=== PATIENT | female | born 1945 | race African-American/Black ===

== ENCOUNTER 2016-12-16 10:46 | Inpatient (IN) | payer OTHER, MEDICAID ==
[~2016-12-16] VITALS: Ht 162.6 cm; Wt 73.0 kg
[2016-12-16] MEDS ORDERED: SODIUM CHLORIDE 0.9% 1,000 ML IV ONE (11:09)
[2016-12-16] MEDS ORDERED: LORAZEPAM 2MG/ML CPJ ONE (11:12)
[2016-12-16] MEDS ORDERED: LEVETIRACETAM 500MG PREMIX 100 ML IV ONE (11:15)
[2016-12-16] MEDS ORDERED: LORAZEPAM 2MG/ML CPJ IV ONE (11:15)
[2016-12-16 11:37] LABS: BASOPHILS % 1.3 % (0.0-2.0); EOSINOPHILS % 0.9 % (0.0-5.0); HEMATOCRIT. 43.6 % (36.0-48.0); LYMPHOCYTES % 40.8 % (20.0-50.0); MEAN CORPUSCULAR HEMOGLOBIN 27.1 pg (28.0-32.0); MEAN CORPUSCULAR VOLUME 84.3 fL (81.0-99.0); MEAN PLATELET VOLUME 8.5 fl (7.4-10.4); MONOCYTES % 5.5 % (2.0-8.0); NEUTROPHILS % 51.5 % (40.0-76.0); PLATELET 254 x1000/uL (130-400); RED BLOOD CELL COUNT 5.18 mill/uL (4.2-5.4); RED CELL DISTRIBUTION WIDTH 13.6 % (11.6-14.6)
[2016-12-16 11:38] LABS: PROTHROMBIN TIME 10.6 sec (9.4-11.6)
[2016-12-16 12:16] LABS: CHLORIDE 106 mEq/L (98-107)
[2016-12-16 12:24] LABS: CARBON DIOXIDE 23 mEq/L (21-32)
[2016-12-16] MEDS ORDERED: SODIUM CHLORIDE 0.9% 1,000 ML IV SCH (14:35)
[2016-12-16] MEDS ORDERED: DOCUSATE SODIUM 100MG CAPSULE PO PRN (15:00)
[2016-12-16] MEDS ORDERED: IPRATROPIUM/ALBUTEROL 0.5-3(2.5)MG/3ML NEB INH PRN (15:00)
[2016-12-16] MEDS ORDERED: NITROGLYCERIN 0.4MG TABLET SL SL PRN (15:00)
[2016-12-16] MEDS ORDERED: NA PHOS,M-B/NA PHOS,DI-BA ENEMA 118ML PR PRN (15:00)
[2016-12-16] MEDS ORDERED: ONDANSETRON HCL 4MG/2ML VIAL IV PRN (15:00)
[2016-12-16] MEDS ORDERED: DIPHENHYDRAMINE 50MG/ML VIAL IV PRN (15:00)
[2016-12-16] MEDS ORDERED: TRAMADOL 50MG TABLET PO PRN (15:00)
[2016-12-16] MEDS ORDERED: MAGNESIUM/ALUMINUM HYDROXIDE/SIMETHICONE 30ML UDC PO PRN (15:00)
[2016-12-16] MEDS ORDERED: ZOLPIDEM TARTRATE 5MG TABLET PO PRN (15:00)
[2016-12-16] MEDS ORDERED: GUAIFENESIN 200MG/10ML SUGAR FREE UDC PO PRN (15:00)
[2016-12-16] MEDS ORDERED: CLONIDINE 0.1MG TABLET PO PRN (15:00)
[2016-12-16] MEDS ORDERED: PHENYTOIN SODIUM 500 MG in SODIUM CHLORIDE 0.9% 50 ML IV SCH (17:00)
[2016-12-16 17:30] VITALS: BP 175/80
[2016-12-16 17:41] VITALS: BP 175/80
[2016-12-16] MEDS ORDERED: DOCUSATE SODIUM SUGAR FREE 100MG/10ML UDC GT PRN (17:43)
[2016-12-16] MEDS ORDERED: MAGNESIUM/ALUMINUM HYDROXIDE/SIMETHICONE 30ML UDC GT PRN (17:45)
[2016-12-16] MEDS ORDERED: ZOLPIDEM TARTRATE 5MG TABLET GT PRN (17:45)
[2016-12-16] MEDS ORDERED: CALC-889 GT (17:55)
[2016-12-16] MEDS ORDERED: ACET-2178 GT (17:55)
[2016-12-16] MEDS ORDERED: KEPP500 GT (17:55)
[2016-12-16] MEDS ORDERED: DOCU-138 GT (17:55)
[2016-12-16] MEDS ORDERED: DIGO250T4 PO (17:55)
[2016-12-16] MEDS ORDERED: METO50TA5 GT (17:55)
[2016-12-16] MEDS ORDERED: MULT-1146 GT (17:55)
[2016-12-16] MEDS ORDERED: CHOL100044 GT (17:55)
[2016-12-16] MEDS ORDERED: PHEN100C4 GT (17:55)
[2016-12-16] MEDS ORDERED: DILT90TA2 GT (17:55)
[2016-12-16] MEDS: DEXT 5%/0.45% NACL 1000ML 1,000 ML IV SCH (18:15)
[2016-12-16] MEDS ORDERED: DEXTROSE 50% WATER 50ML SYRINGE IV PRN (18:30)
[2016-12-16] MEDS: CLONIDINE 0.1MG TABLET GT PRN (18:38)
[2016-12-16] MEDS: LORAZEPAM 2MG/ML CPJ IV PRN (18:39)
[2016-12-16] MEDS ORDERED: GUAIFENESIN 200MG/10ML SUGAR FREE UDC GT PRN (19:00)
[2016-12-16 20:00] VITALS: BP 137/70
[2016-12-16] MEDS ORDERED: CLONIDINE 0.1MG TABLET GT PRN (21:00)
[2016-12-16] MEDS ORDERED: LISINOPRIL 20MG TABLET PO SCH (21:00)
[2016-12-16] MEDS ORDERED: TRAMADOL 50MG TABLET GT PRN (21:00)
[2016-12-16] MEDS ORDERED: LEVETIRACETAM 500MG TABLET PO SCH (21:00)
[2016-12-16] MEDS: INSULIN LISPRO 100 UNITS/ML SUBCUT SCH (21:00)
[2016-12-16] MEDS ORDERED: PHENYTOIN SODIUM EXTENDED 100MG CAPSULE PO SCH (21:00)
[2016-12-16] MEDS: FAMOTIDINE 20MG/2ML VIAL IV SCH (21:07)
[2016-12-16] MEDS: LEVETIRACETAM 500MG TABLET GT SCH (21:08)
[2016-12-16] MEDS: LISINOPRIL 20MG TABLET GT SCH (21:09)
[2016-12-16] MEDS: BLOOD SUGAR DIAGNOSTIC STRIP TEST SCH (21:10)
[2016-12-16 23:40] LABS: CREATINE KINASE MB FRACTION 2.3 ng/mL (0.5-3.6); TROPONIN I 0.07 ng/mL (0.00-0.04)
[2016-12-17] VITALS: BP 150/70
[2016-12-17] MEDS: LORAZEPAM 2MG/ML CPJ IV PRN (02:06)
[2016-12-17 04:00] VITALS: BP 165/71
[2016-12-17] MEDS: DEXT 5%/0.45% NACL 1000ML 1,000 ML IV SCH (04:15)
[2016-12-17] MEDS: CLONIDINE 0.1MG TABLET GT PRN (05:42)
[2016-12-17 06:42] LABS: TROPONIN I 0.05 ng/mL (0.00-0.04)
[2016-12-17] MEDS: BLOOD SUGAR DIAGNOSTIC STRIP TEST SCH ×4 (06:42→21:16)
[2016-12-17 06:43] LABS: CREATINE KINASE MB FRACTION 2.3 ng/mL (0.5-3.6)
[2016-12-17] MEDS: INSULIN LISPRO 100 UNITS/ML SUBCUT SCH ×4 (07:46→21:00)
[2016-12-17 08:00] VITALS: BP 133/75
[2016-12-17] MEDS ORDERED: AMLODIPINE 10MG TABLET PO SCH (09:00)
[2016-12-17] MEDS ORDERED: ASPIRIN 325MG EC TABLET PO SCH (09:00)
[2016-12-17] MEDS: LEVETIRACETAM 500MG TABLET GT SCH ×2 (09:25→21:15)
[2016-12-17] MEDS: FAMOTIDINE 20MG/2ML VIAL IV SCH ×2 (09:32→21:15)
[2016-12-17] MEDS: AMLODIPINE 10MG TABLET GT SCH (09:32)
[2016-12-17] MEDS: ASPIRIN 325MG TABLET GT SCH (09:33)
[2016-12-17] MEDS: ENOXAPARIN 40MG/0.4ML SYR SUBCUT SCH (09:33)
[2016-12-17] MEDS: LISINOPRIL 20MG TABLET GT SCH ×2 (09:33→21:15)
[2016-12-17 12:00] VITALS: BP 150/58
[2016-12-17 16:00] VITALS: BP 158/71
[2016-12-17 20:00] VITALS: BP 160/76
[2016-12-17] MEDS ORDERED: PHENYTOIN 100 MG/4 ML UDC GT SCH (21:00)
[2016-12-18] VITALS: BP 121/64
[2016-12-18] MEDS: LORAZEPAM 2MG/ML CPJ IV PRN (03:42)
[2016-12-18 04:00] VITALS: BP 146/81
[2016-12-18] MEDS: BLOOD SUGAR DIAGNOSTIC STRIP TEST SCH ×2 (07:42→12:40)
[2016-12-18] MEDS: INSULIN LISPRO 100 UNITS/ML SUBCUT SCH ×2 (07:42→13:10)
[2016-12-18 08:00] VITALS: BP 169/77
[2016-12-18] MEDS: ENOXAPARIN 40MG/0.4ML SYR SUBCUT SCH (09:49)
[2016-12-18] MEDS: FAMOTIDINE 20MG/2ML VIAL IV SCH (09:50)
[2016-12-18] MEDS: ASPIRIN 325MG TABLET GT SCH (09:50)
[2016-12-18] MEDS: LEVETIRACETAM 500MG TABLET GT SCH (09:50)
[2016-12-18] MEDS: LISINOPRIL 20MG TABLET GT SCH (09:51)
[2016-12-18] MEDS: AMLODIPINE 10MG TABLET GT SCH (09:51)
[2016-12-18 12:00] VITALS: BP 154/76
[2016-12-18] MEDS: CLONIDINE 0.1MG TABLET GT PRN (12:25)
[2016-12-18 13:10] VITALS: BP 145/65
== END 2016-12-18 14:56 | DRG 101 ==
LOC: ER 10:48 → SUPCPDRO 14:45 → ENRESERV 15:31 → 7WST 15:31
PROVIDERS: ADMIT Internal Medicine; ATTEND Internal Medicine
DX: G40.901 Epilepsy, unspecified, not intractable, with status epilepticus (principal); E44.0 Moderate protein-calorie malnutrition; E11.9 Type 2 diabetes mellitus without complications; I10 Essential (primary) hypertension; Z79.4 Long term (current) use of insulin; Z86.73 Personal history of transient ischemic attack (TIA), and cerebral infarction without residual deficits; Z79.899 Other long term (current) drug therapy; Z68.27 Body mass index [BMI] 27.0-27.9, adult
CPT/HCPCS: 36415; 70450; 71010; 80053; 80185; 82550; 82553; 82962; 84484; 85025; 85610; 93005; 93306; 93970; 96374; 99291; C1893; J1165; J1650; J1815; J1953; J2060; J3490; J7030

== ENCOUNTER 2017-06-04 19:28 | Inpatient (IN) | payer OTHER, MEDICAID ==
[~2017-06-04] VITALS: Ht 172.7 cm; Wt 87.7 kg
[~2017-06-04 19:28] MED LIST: ACET-2178 GT; CALC-889 GT; CHOL100044 GT; DIGO250T4 GT; DILT240T12 GT; DOCU-138 GT; HYDR-4134 GT; INSLIS SUBCUT; LEVE750T10 GT; METO-539 GT
[2017-06-04] MEDS ORDERED: SODIUM CHLORIDE 0.9% 1,000 ML IV ONE (22:40)
[2017-06-04 23:17] LABS: BASOPHILS % 0.7 % (0.0-2.0); EOSINOPHILS % 0.8 % (0.0-5.0); HEMATOCRIT. 36.2 % (36.0-48.0); HEMOGLOBIN. 11.8 g/dL (12.0-16.0); MEAN CORPUSCULAR HEMOGLOBIN 27.6 pg (28.0-32.0); MEAN CORPUSCULAR VOLUME 84.7 fL (81.0-99.0); MONOCYTES % 8.7 % (2.0-8.0); NEUTROPHILS % 72.8 % (40.0-76.0); PLATELET 136 x1000/uL (130-400); RED BLOOD CELL COUNT 4.27 mill/uL (4.2-5.4); RED CELL DISTRIBUTION WIDTH 13.9 % (11.6-14.6)
[2017-06-04 23:19] LABS: CHLORIDE 112 mEq/L (98-107)
[2017-06-04 23:28] LABS: CREATINE KINASE 334 IU/L (26-192)
[2017-06-04 23:38] LABS: CLARITY URINE CLOUDY (CLEAR); COLOR URINE YELLOW (YELLOW); KETONES URINE NEGATIVE (NEGATIVE); LEUKOCYTE ESTERASE URINE NEGATIVE (NEGATIVE); NITRITE URINE NEGATIVE (NEGATIVE); OCCULT BLOOD URINE TRACE (NEGATIVE); PROTEIN URINE 3+ (NEGATIVE); SPECIFIC GRAVITY URINE 1.021 (1.005-1.030); UROBILINOGEN URINE 0.2 E.U./dL (0.2-1.0)
[2017-06-04 23:54] LABS: AMMONIA 31 uMol/L (<32)
[2017-06-05] MEDS ORDERED: ONDANSETRON HCL 4MG/2ML VIAL IV PRN (00:15)
[2017-06-05] MEDS ORDERED: ACETAMINOPHEN 325MG TABLET PO PRN (00:15)
[2017-06-05] MEDS ORDERED: DIPHENHYDRAMINE 50MG/ML VIAL IV PRN (00:15)
[2017-06-05] MEDS ORDERED: DEXT 5%/0.45% NACL 1000ML 1,000 ML IV SCH (05:00)
[2017-06-05 09:30] VITALS: BP 136/80
[2017-06-05] MEDS: DEXT 5%/0.45% NACL 1000ML 1,000 ML IV SCH (10:45)
[2017-06-05 12:00] VITALS: BP 109/41
[2017-06-05 16:00] VITALS: BP 108/40
[2017-06-05] MEDS ORDERED: DEXTROSE 50% WATER 50ML SYRINGE IV PRN (16:15)
[2017-06-05] MEDS: BLOOD SUGAR DIAGNOSTIC STRIP TEST SCH ×2 (17:40→21:30)
[2017-06-05] MEDS: INSULIN LISPRO 100 UNITS/ML SUBCUT SCH ×2 (18:10→21:34)
[2017-06-05 20:18] VITALS: BP 127/69
[2017-06-06] MEDS: DEXT 5%/0.45% NACL 1000ML 1,000 ML IV SCH ×4 (00:05→22:05)
[2017-06-06 00:07] VITALS: BP 142/77
[2017-06-06 04:00] VITALS: BP 138/76
[2017-06-06] MEDS: BLOOD SUGAR DIAGNOSTIC STRIP TEST SCH ×4 (06:01→21:36)
[2017-06-06 08:00] VITALS: BP 136/69
[2017-06-06] MEDS: INSULIN LISPRO 100 UNITS/ML SUBCUT SCH ×4 (08:29→21:00)
[2017-06-06 08:54] LABS: BASOPHILS % 0.5 % (0.0-2.0); EOSINOPHILS % 0.5 % (0.0-5.0); HEMATOCRIT. 34.6 % (36.0-48.0); HEMOGLOBIN. 11.1 g/dL (12.0-16.0); LYMPHOCYTES % 11.7 % (20.0-50.0); MEAN CORPUSCULAR HEMOGLOBIN 27.1 pg (28.0-32.0); MEAN CORPUSCULAR VOLUME 84.5 fL (81.0-99.0); MEAN PLATELET VOLUME 11.5 fl (7.4-10.4); MONOCYTES % 7.3 % (2.0-8.0); PLATELET 161 x1000/uL (130-400); RED BLOOD CELL COUNT 4.09 mill/uL (4.2-5.4); RED CELL DISTRIBUTION WIDTH 13.6 % (11.6-14.6)
[2017-06-06 09:20] LABS: PHOSPHORUS 5.1 mg/dL (2.5-4.9)
[2017-06-06 12:00] VITALS: BP 134/76
[2017-06-06] MEDS ORDERED: POTASSIUM CHLORIDE 20MEQ/PACKET GT SCH (15:00)
[2017-06-06 16:00] VITALS: BP 139/81
[2017-06-06 20:00] VITALS: BP 131/78
[2017-06-07] VITALS: BP 144/80
[2017-06-07 04:00] VITALS: BP 142/63
[2017-06-07] MEDS: BLOOD SUGAR DIAGNOSTIC STRIP TEST SCH ×4 (06:24→21:00)
[2017-06-07 08:00] VITALS: BP 154/80
[2017-06-07 08:17] LABS: BASOPHILS % 0.2 % (0.0-2.0); EOSINOPHILS % 0.7 % (0.0-5.0); HEMATOCRIT. 31.1 % (36.0-48.0); HEMOGLOBIN. 10.2 g/dL (12.0-16.0); MEAN CORPUSCULAR HEMOGLOBIN 27.4 pg (28.0-32.0); MEAN CORPUSCULAR VOLUME 83.5 fL (81.0-99.0); MEAN PLATELET VOLUME 11.2 fl (7.4-10.4); MONOCYTES % 9.6 % (2.0-8.0); NEUTROPHILS % 75.5 % (40.0-76.0); PLATELET 182 x1000/uL (130-400); RED BLOOD CELL COUNT 3.73 mill/uL (4.2-5.4); RED CELL DISTRIBUTION WIDTH 13.3 % (11.6-14.6)
[2017-06-07 08:41] LABS: PHOSPHORUS 4.7 mg/dL (2.5-4.9)
[2017-06-07] MEDS: INSULIN LISPRO 100 UNITS/ML SUBCUT SCH ×4 (10:39→21:00)
[2017-06-07] MEDS ORDERED: POTASSIUM CHLORIDE INJ 40 MEQ in DEXT 5% WATER 500 ML IV SCH (11:00)
[2017-06-07 12:00] VITALS: BP 138/77
[2017-06-07] MEDS: DEXT 5%/0.45% NACL 1000ML 1,000 ML IV SCH (13:51)
[2017-06-07 16:00] VITALS: BP 150/78
[2017-06-07] MEDS ORDERED: POTASSIUM CHLORIDE 20MEQ/PACKET GT NR (17:00)
[2017-06-07 20:00] VITALS: BP 127/62
[2017-06-07] MEDS ORDERED: LOPERAMIDE 2 MG/10 ML UDC PO PRN (22:15)
[2017-06-08] VITALS (7 sets, daily range): BP systolic 130–168; BP diastolic 66–86
[2017-06-08] MEDS: BLOOD SUGAR DIAGNOSTIC STRIP TEST SCH ×4 (06:40→21:00)
[2017-06-08] MEDS: INSULIN LISPRO 100 UNITS/ML SUBCUT SCH ×4 (08:10→22:28)
[2017-06-08 08:28] LABS: BASOPHILS % 0.4 % (0.0-2.0); EOSINOPHILS % 1.2 % (0.0-5.0); HEMATOCRIT. 27.4 % (36.0-48.0); HEMOGLOBIN. 9.2 g/dL (12.0-16.0); LYMPHOCYTES % 18.8 % (20.0-50.0); MEAN CORPUSCULAR HEMOGLOBIN 27.7 pg (28.0-32.0); MEAN CORPUSCULAR VOLUME 82.3 fL (81.0-99.0); MEAN PLATELET VOLUME 10.6 fl (7.4-10.4); MONOCYTES % 8.9 % (2.0-8.0); NEUTROPHILS % 70.7 % (40.0-76.0); PLATELET 178 x1000/uL (130-400); RED BLOOD CELL COUNT 3.33 mill/uL (4.2-5.4); RED CELL DISTRIBUTION WIDTH 13.3 % (11.6-14.6)
[2017-06-08 08:59] LABS: PHOSPHORUS 4.7 mg/dL (2.5-4.9)
[2017-06-08] MEDS ORDERED: IOHEXOL-300 50 ML BOTTLE IV ONE (11:25)
[2017-06-09] VITALS (7 sets, daily range): BP systolic 99–176; BP diastolic 48–82
[2017-06-09] MEDS: BLOOD SUGAR DIAGNOSTIC STRIP TEST SCH ×4 (07:40→21:00)
[2017-06-09] MEDS: INSULIN LISPRO 100 UNITS/ML SUBCUT SCH ×4 (08:10→21:00)
[2017-06-09 11:43] LABS: BASOPHILS % 0.2 % (0.0-2.0); EOSINOPHILS % 0.5 % (0.0-5.0); HEMATOCRIT. 32.5 % (36.0-48.0); HEMOGLOBIN. 10.9 g/dL (12.0-16.0); LYMPHOCYTES % 12.3 % (20.0-50.0); MEAN CORPUSCULAR HEMOGLOBIN 27.6 pg (28.0-32.0); MEAN CORPUSCULAR VOLUME 82.3 fL (81.0-99.0); MEAN PLATELET VOLUME 10.8 fl (7.4-10.4); MONOCYTES % 0.3 % (2.0-8.0); NEUTROPHILS % 86.7 % (40.0-76.0); PLATELET 196 x1000/uL (130-400); RED BLOOD CELL COUNT 3.95 mill/uL (4.2-5.4); RED CELL DISTRIBUTION WIDTH 13.4 % (11.6-14.6)
[2017-06-09 13:12] LABS: PHOSPHORUS 4.8 mg/dL (2.5-4.9)
[2017-06-10 04:00] VITALS: BP 148/74
[2017-06-10] MEDS: BLOOD SUGAR DIAGNOSTIC STRIP TEST SCH ×4 (05:29→20:57)
[2017-06-10 08:00] VITALS: BP 135/64
[2017-06-10] MEDS: INSULIN LISPRO 100 UNITS/ML SUBCUT SCH ×4 (08:10→21:00)
[2017-06-10 11:47] VITALS: BP 114/66
[2017-06-10 16:00] VITALS: BP 122/68
[2017-06-10 20:00] VITALS: BP 142/71
[2017-06-11] VITALS: BP 148/76
[2017-06-11 04:00] VITALS: BP 160/79
[2017-06-11] MEDS: BLOOD SUGAR DIAGNOSTIC STRIP TEST SCH ×4 (06:31→21:00)
[2017-06-11] MEDS: INSULIN LISPRO 100 UNITS/ML SUBCUT SCH ×4 (07:26→21:00)
[2017-06-11 08:00] VITALS: BP 149/82
[2017-06-11 12:00] VITALS: BP 138/74
[2017-06-11 16:00] VITALS: BP 186/97
[2017-06-11] MEDS: CLONIDINE 0.1MG TABLET PO PRN (17:47)
[2017-06-11 20:00] VITALS: BP 142/77
[2017-06-12] VITALS (9 sets, daily range): BP systolic 139–180; BP diastolic 76–95
[2017-06-12] MEDS: BLOOD SUGAR DIAGNOSTIC STRIP TEST SCH ×4 (05:54→20:44)
[2017-06-12] MEDS: CLONIDINE 0.1MG TABLET PO PRN ×3 (05:54→21:16)
[2017-06-12] MEDS: INSULIN LISPRO 100 UNITS/ML SUBCUT SCH ×4 (05:55→20:44)
[2017-06-12 09:52] LABS: BASOPHILS % 0.3 % (0.0-2.0); EOSINOPHILS % 0.9 % (0.0-5.0); HEMATOCRIT. 26.6 % (36.0-48.0); HEMOGLOBIN. 8.8 g/dL (12.0-16.0); LYMPHOCYTES % 16.1 % (20.0-50.0); MEAN CORPUSCULAR VOLUME 81.9 fL (81.0-99.0); MEAN PLATELET VOLUME 9.1 fl (7.4-10.4); MONOCYTES % 8.3 % (2.0-8.0); NEUTROPHILS % 74.4 % (40.0-76.0); PLATELET 245 x1000/uL (130-400); RED BLOOD CELL COUNT 3.25 mill/uL (4.2-5.4); RED CELL DISTRIBUTION WIDTH 13.4 % (11.6-14.6)
[2017-06-12 11:18] LABS: PHOSPHORUS 5.1 mg/dL (2.5-4.9)
[2017-06-12] MEDS ORDERED: POTASSIUM CHLORIDE 20MEQ/PACKET PEG SCH (12:00)
[2017-06-12] MEDS ORDERED: HYDRALAZINE 20MG/ML VIAL IV NR (16:30)
== END 2017-06-12 23:17 | DRG 682 ==
LOC: ER 19:40 → 7WST 23:55 → EDBEDREQ 06-05 00:16 → ENRESERV 06-05 07:53
PROVIDERS: ADMIT Internal Medicine; ATTEND Internal Medicine
PROC: 06H033Z Insertion of Infusion Device into Inferior Vena Cava, Percutaneous Approach (ICD-10-PCS; principal; 2017-06-08)
PROC: B549ZZA Ultrasonography of Inferior Vena Cava, Guidance (ICD-10-PCS; 2017-06-08)
PROC: 5A1D70Z Performance of Urinary Filtration, Intermittent, Less than 6 Hours Per Day (ICD-10-PCS; 2017-06-08)
PROC: 5A1D70Z Performance of Urinary Filtration, Intermittent, Less than 6 Hours Per Day (ICD-10-PCS; 2017-06-09)
PROC: B5191ZA Fluoroscopy of Inferior Vena Cava using Low Osmolar Contrast, Guidance (ICD-10-PCS; 2017-06-09)
DX: N17.9 Acute kidney failure, unspecified (principal); E43 Unspecified severe protein-calorie malnutrition; G93.49 Other encephalopathy; E87.0 Hyperosmolality and hypernatremia; I48.91 Unspecified atrial fibrillation; I49.5 Sick sinus syndrome; R13.10 Dysphagia, unspecified; F01.50 Vascular dementia, unspecified severity, without behavioral disturbance, psychotic disturbance, mood disturbance, and anxiety; G81.90 Hemiplegia, unspecified affecting unspecified side; R47.01 Aphasia; E86.0 Dehydration; D64.9 Anemia, unspecified; G40.909 Epilepsy, unspecified, not intractable, without status epilepticus; I10 Essential (primary) hypertension; E11.9 Type 2 diabetes mellitus without complications; Z74.01 Bed confinement status; Z82.49 Family history of ischemic heart disease and other diseases of the circulatory system; Z93.1 Gastrostomy status; Z79.899 Other long term (current) drug therapy; Z79.4 Long term (current) use of insulin; Z68.29 Body mass index [BMI] 29.0-29.9, adult; Z86.73 Personal history of transient ischemic attack (TIA), and cerebral infarction without residual deficits
CPT/HCPCS: 36415; 36556; 71045; 76937; 77001; 80048; 80053; 81003; 82140; 82550; 82962; 83735; 83935; 84100; 84300; 85025; 87493; 93970; 96361; 96365; 96366; 99285; C1752; J0360; J1815; J3480; J3490; J7030; J7060; Q9967; A4315

== ENCOUNTER 2017-10-23 06:25 | Inpatient (IN) | payer OTHER, MEDICAID ==
[2017-10-23] VITALS (54 sets, daily range): BP systolic 101–175; BP diastolic 56–125
[~2017-10-23] VITALS: Ht 167.6 cm; Wt 106.1 kg
[~2017-10-23 06:25] MED LIST changes: +APIX5TAB GT; +DIGO125T82 GT; -DIGO250T4 GT; +PHEN100C4 GT
[2017-10-23] MEDS ORDERED: LEVETIRACETAM 500MG PREMIX 100 ML IV ONE ×2 (06:30→07:15)
[2017-10-23] MEDS ORDERED: LORAZEPAM 2MG/ML CPJ IV ONE (06:30)
[2017-10-23] MEDS ORDERED: SODIUM CHLORIDE 0.9% 1,000 ML IV ONE (06:30)
[2017-10-23] MEDS ORDERED: LORAZEPAM 2MG/ML CPJ ONE (06:35)
[2017-10-23] MEDS ORDERED: LEVOFLOXACIN 500MG PREMIX 100 ML IV ONE (07:00)
[2017-10-23] MEDS ORDERED: PIPERACILLIN/TAZ 3.375G PREMIX 50 ML IV ONE (07:00)
[2017-10-23] MEDS ORDERED: SODIUM CHLORIDE 0.9% 1000ML BAG (SEPSIS BOLUS) IV ONE (07:00)
[2017-10-23] MEDS ORDERED: PROPOFOL 10MG/ML 100ML 100 ML IV ONE (07:00)
[2017-10-23] MEDS ORDERED: ETOMIDATE 2MG/ML 10ML VIAL IV ONE ×2 (07:00→13:38)
[2017-10-23] MEDS ORDERED: SUCCINYLCHOLINE CHLORIDE 200MG/10ML VIAL IV ONE ×2 (07:00→13:38)
[2017-10-23] MEDS ORDERED: MIDAZOLAM HCL 50 MG in DEXTROSE 5% WATER 40 ML IV ONE ×2 (07:00→07:15)
[2017-10-23] MEDS ORDERED: VECURONIUM BROMIDE 10 MG/VIAL IV ONE ×2 (07:00→13:38)
[2017-10-23 07:04] LABS: BG BASE EXCESS -5.8 mmol/L (-2.0-2.0); BG CARBOXYHEMOGLOBIN 0.3 % (0.5-1.5); BG DEOXYHEMOGLOBIN 0.3 % (0.0-5.0); BG FRACTION INSPIRED OXYGEN 100; BG HCO3 ACT 19.2 mmol/L (22.0-26.0); BG METHEMOGLOBIN 0.3 % (0.0-1.5); BG OXYGEN SATURATION 99.7 % (92.0-98.5); BG OXYHEMOGLOBIN 99.1 % (94.0-97.0); BG PCO2 36.3 mmHg (35.0-45.0); BG PH 7.342 (7.350-7.450); BG SAMPLE SITE LEFT FEMORAL; BG TIDAL VOLUME(mL) 500 mL; BG VENT MODE VENT - A/C; BG VENT RATE 14 set
[2017-10-23] MEDS ORDERED: NOREPINEPHRINE 4 MG in DEXT 5% WATER 246 ML IV ONE ×4 (07:15)
[2017-10-23] MEDS ORDERED: ACETAMINOPHEN 650MG SUPP PR ONE (07:15)
[2017-10-23 07:16] LABS: HEMATOCRIT. 40.8 % (36.0-48.0); HEMOGLOBIN. 13.3 g/dL (12.0-16.0); MEAN CORPUSCULAR HEMOGLOBIN 26.5 pg (28.0-32.0); MEAN CORPUSCULAR VOLUME 81.3 fL (81.0-99.0); MEAN PLATELET VOLUME 8.9 fl (7.4-10.4); PLATELET 278 x1000/uL (130-400); RED BLOOD CELL COUNT 5.02 mill/uL (4.2-5.4); RED CELL DISTRIBUTION WIDTH 16.6 % (11.6-14.6)
[2017-10-23 07:20] LABS: CHLORIDE 107 mEq/L (98-107)
[2017-10-23 07:24] LABS: ETHANOL BLOOD < 10 mg/dL
[2017-10-23 07:25] LABS: PARTIAL THROMBOPLASTIN TIME 23.7 sec (23.4-31.0); PROTHROMBIN TIME 9.7 sec (9.1-11.1)
[2017-10-23 07:40] LABS: NUCLEATED RED BLOOD CELLS 1 /100 WBC; PLATELET ESTIMATE NORMAL
[2017-10-23] MEDS ORDERED: PHENYTOIN SODIUM 1,000 MG in SODIUM CHLORIDE 0.9% 100 ML IV ONE (07:45)
[2017-10-23 07:59] LABS: COLOR URINE YELLOW (YELLOW); KETONES URINE NEGATIVE (NEGATIVE); LEUKOCYTE ESTERASE URINE NEGATIVE (NEGATIVE); NITRITE URINE NEGATIVE (NEGATIVE); OCCULT BLOOD URINE TRACE (NEGATIVE); PH URINE 7.5 (4.5-8.0); PROTEIN URINE 4+ (NEGATIVE); SPECIFIC GRAVITY URINE 1.024 (1.005-1.030); UROBILINOGEN URINE 0.2 E.U./dL (0.2-1.0)
[2017-10-23 08:03] LABS: CLARITY URINE CLEAR (CLEAR)
[2017-10-23 08:17] LABS: *BARBITURATES SCREEN URINE NEGATIVE (NEGATIVE); *BENZODIAZEPINES SCREEN URINE NEGATIVE (NEGATIVE)
[2017-10-23 08:18] LABS: *AMPHETAMINES SCREEN URINE NEGATIVE (NEGATIVE); *COCAINE SCREEN URINE NEGATIVE (NEGATIVE); CANNABINOID URINE SCREEN NEGATIVE (NEGATIVE); METHADONE URINE SCREEN NEGATIVE (NEGATIVE); OPIATES URINE SCREEN NEGATIVE (NEGATIVE); PHENCYCLIDINE URINE SCREEN NEGATIVE (NEGATIVE)
[2017-10-23] MEDS ORDERED: NOREPINEPHRINE 8 MG in DEXT 5% WATER 242 ML IV PRN (09:15)
[2017-10-23] MEDS: SODIUM CHLORIDE 0.9% 1,000 ML IV SCH (09:15)
[2017-10-23] MEDS: PANTOPRAZOLE SODIUM 40 MG/VIAL IV SCH (10:31)
[2017-10-23] MEDS ORDERED: LORAZEPAM 2MG/ML CPJ IV PRN (10:45)
[2017-10-23] MEDS ORDERED: DEXTROSE 50% WATER 50ML SYRINGE IV PRN (10:45)
[2017-10-23] MEDS ORDERED: VANCOMYCIN 1500MG in DEXTROSE 5% WATER 250ML IV NR (11:00)
[2017-10-23] MEDS: BLOOD SUGAR DIAGNOSTIC STRIP TEST SCH ×3 (11:30→20:15)
[2017-10-23] MEDS: INSULIN LISPRO 100 UNITS/ML SUBCUT SCH ×3 (12:00→20:16)
[2017-10-23 12:30] LABS: CREATINE KINASE 130 IU/L (26-192)
[2017-10-23] MEDS ORDERED: NORMAL SALINE 0.9% 10 ML SYR ONE (13:38)
[2017-10-23] MEDS: PHENYTOIN SODIUM 100MG/2ML VIAL IV SCH ×2 (13:50→21:13)
[2017-10-23] MEDS: PIPERACILLIN/TAZ 3.375G PREMIX 50 ML IV SCH (15:30)
[2017-10-23] MEDS: PHENYTOIN SODIUM 1,000 MG in SODIUM CHLORIDE 0.9% 100 ML IV SCH ×3 (15:42→15:47)
[2017-10-23] MEDS: CLONIDINE 0.1MG TABLET PO PRN (16:49)
[2017-10-23] MEDS: MIDAZOLAM HCL 100 MG in DEXT 5% WATER 80 ML IV PRN (18:00)
[2017-10-23] MEDS ORDERED: LEVETIRACETAM 500 MG in SODIUM CHLORIDE 0.9% 100 ML IV SCH (19:00)
[2017-10-23] MEDS: LEVETIRACETAM 1,000 MG in SODIUM CHLORIDE 0.9% 100 ML IV SCH (20:48)
[2017-10-24] VITALS (48 sets, daily range): BP systolic 99–168; BP diastolic 50–103
[2017-10-24] MEDS: PIPERACILLIN/TAZ 3.375G PREMIX 50 ML IV SCH ×3 (00:42→14:36)
[2017-10-24] MEDS ORDERED: HYDRALAZINE 20MG/ML VIAL IV PRN (01:00)
[2017-10-24] MEDS: SODIUM CHLORIDE 0.9% 1,000 ML IV SCH ×2 (02:30→13:00)
[2017-10-24] MEDS ORDERED: VANCOMYCIN 1 G PREMIX 200 ML IV SCH (05:00)
[2017-10-24] MEDS: VANCOMYCIN 1250MG in DEXTROSE 5% WATER 250ML IV SCH (06:00)
[2017-10-24] MEDS: PHENYTOIN SODIUM 100MG/2ML VIAL IV SCH ×3 (06:00→21:14)
[2017-10-24 06:13] LABS: BASOPHILS % 0.5 % (0.0-2.0); EOSINOPHILS % 0.1 % (0.0-5.0); HEMATOCRIT. 37.1 % (36.0-48.0); LYMPHOCYTES % 19.9 % (20.0-50.0); MEAN CORPUSCULAR HEMOGLOBIN 25.7 pg (28.0-32.0); MEAN CORPUSCULAR VOLUME 79.2 fL (81.0-99.0); MEAN PLATELET VOLUME 8.8 fl (7.4-10.4); MONOCYTES % 9.8 % (2.0-8.0); NEUTROPHILS % 69.7 % (40.0-76.0); PLATELET 210 x1000/uL (130-400); RED BLOOD CELL COUNT 4.68 mill/uL (4.2-5.4); RED CELL DISTRIBUTION WIDTH 16.7 % (11.6-14.6)
[2017-10-24] MEDS: BLOOD SUGAR DIAGNOSTIC STRIP TEST SCH ×3 (06:16→18:40)
[2017-10-24] MEDS: INSULIN LISPRO 100 UNITS/ML SUBCUT SCH ×3 (06:20→18:00)
[2017-10-24 06:36] LABS: CHLORIDE 110 mEq/L (98-107)
[2017-10-24] MEDS: PANTOPRAZOLE SODIUM 40 MG/VIAL IV SCH (08:23)
[2017-10-24] MEDS: LEVETIRACETAM 1,000 MG in SODIUM CHLORIDE 0.9% 100 ML IV SCH (08:23)
[2017-10-24] MEDS ORDERED: ACETAMINOPHEN 325MG TABLET PO PRN (09:00)
[2017-10-24] MEDS: ACETAMINOPHEN 650MG/20.3ML UDC PO PRN ×2 (09:17→14:56)
[2017-10-24] MEDS ORDERED: LORAZEPAM 2MG/ML CPJ IV PRN (10:45)
[2017-10-24 12:37] LABS: BG BASE EXCESS -2.5 mmol/L (-2.0-2.0); BG CARBOXYHEMOGLOBIN 0.3 % (0.5-1.5); BG DEOXYHEMOGLOBIN 1.9 % (0.0-5.0); BG FRACTION INSPIRED OXYGEN 45; BG HCO3 ACT 19.2 mmol/L (22.0-26.0); BG METHEMOGLOBIN 0.2 % (0.0-1.5); BG OXYGEN SATURATION 98.1 % (92.0-98.5); BG OXYHEMOGLOBIN 97.6 % (94.0-97.0); BG PCO2 25.1 mmHg (35.0-45.0); BG PH 7.502 (7.350-7.450); BG PO2 113.6 mmHg (75.0-100.0); BG SAMPLE SITE RIGHT RADIAL; BG TIDAL VOLUME(mL) 500 mL; BG TOTAL HEMOGLOBIN 11.9 g/dL (12.0-18.0); BG VENT MODE VENT - A/C; BG VENT RATE 14 set
[2017-10-24] MEDS: MIDAZOLAM HCL 100 MG in DEXT 5% WATER 80 ML IV PRN (14:43)
[2017-10-24] MEDS: CLONIDINE 0.1MG TABLET PO PRN (14:43)
[2017-10-24] MEDS: ZONISAMIDE 100MG CAPSULE PO SCH (18:52)
[2017-10-24] MEDS: AMIKACIN SULFATE 450 MG in SODIUM CHLORIDE 0.9% 100 ML IV SCH (18:53)
[2017-10-24] MEDS: LEVETIRACETAM 1,250 MG in SODIUM CHLORIDE 0.9% 100 ML IV SCH (20:49)
[2017-10-25] VITALS (34 sets, daily range): BP systolic 91–162; BP diastolic 23–109
[2017-10-25] MEDS: PIPERACILLIN/TAZ 3.375G PREMIX 50 ML IV SCH ×3 (00:38→15:27)
[2017-10-25] MEDS: VANCOMYCIN 1250MG in DEXTROSE 5% WATER 250ML IV SCH ×2 (00:46→18:09)
[2017-10-25] MEDS: BLOOD SUGAR DIAGNOSTIC STRIP TEST SCH ×4 (00:46→17:58)
[2017-10-25] MEDS: AMIKACIN SULFATE 450 MG in SODIUM CHLORIDE 0.9% 100 ML IV SCH (05:33)
[2017-10-25] MEDS: PHENYTOIN SODIUM 100MG/2ML VIAL IV SCH ×3 (05:33→22:00)
[2017-10-25] MEDS: INSULIN LISPRO 100 UNITS/ML SUBCUT SCH ×4 (05:40→17:58)
[2017-10-25 06:09] LABS: BASOPHILS % 0.2 % (0.0-2.0); EOSINOPHILS % 0.7 % (0.0-5.0); HEMATOCRIT. 41.5 % (36.0-48.0); HEMOGLOBIN. 13.4 g/dL (12.0-16.0); LYMPHOCYTES % 21.5 % (20.0-50.0); MEAN CORPUSCULAR HEMOGLOBIN 26.3 pg (28.0-32.0); MEAN CORPUSCULAR VOLUME 81.5 fL (81.0-99.0); MEAN PLATELET VOLUME 8.5 fl (7.4-10.4); MONOCYTES % 12.2 % (2.0-8.0); NEUTROPHILS % 65.4 % (40.0-76.0); PLATELET 187 x1000/uL (130-400); RED BLOOD CELL COUNT 5.09 mill/uL (4.2-5.4); RED CELL DISTRIBUTION WIDTH 16.6 % (11.6-14.6)
[2017-10-25 06:10] LABS: CHLORIDE 108 mEq/L (98-107)
[2017-10-25] MEDS: SODIUM CHLORIDE 0.9% 1,000 ML IV SCH ×2 (08:33→15:28)
[2017-10-25 09:15] LABS: BG BASE EXCESS 0.1 mmol/L (-2.0-2.0); BG DEOXYHEMOGLOBIN 1.2 % (0.0-5.0); BG FRACTION INSPIRED OXYGEN 45; BG HCO3 ACT 22.6 mmol/L (22.0-26.0); BG METHEMOGLOBIN 0.2 % (0.0-1.5); BG OXYGEN SATURATION 98.8 % (92.0-98.5); BG OXYHEMOGLOBIN 98.6 % (94.0-97.0); BG PCO2 30.1 mmHg (35.0-45.0); BG PH 7.493 (7.350-7.450); BG SAMPLE SITE RIGHT RADIAL; BG TIDAL VOLUME(mL) 500 mL; BG VENT MODE VENT - A/C; BG VENT RATE 14 set
[2017-10-25] MEDS: LEVETIRACETAM 1,250 MG in SODIUM CHLORIDE 0.9% 100 ML IV SCH (09:54)
[2017-10-25] MEDS: ACETAMINOPHEN 650MG/20.3ML UDC PO PRN (09:54)
[2017-10-25] MEDS: ZONISAMIDE 100MG CAPSULE PO SCH (09:55)
[2017-10-25] MEDS: PANTOPRAZOLE SODIUM 40 MG/VIAL IV SCH (09:55)
[2017-10-25] MEDS: MIDAZOLAM HCL 100 MG in DEXT 5% WATER 80 ML IV PRN (11:16)
[2017-10-25] MEDS: PROPOFOL 10MG/ML 100ML 100 ML IV PRN (15:30)
[2017-10-25] MEDS: LEVETIRACETAM 1,500 MG in SODIUM CHLORIDE 0.9% 100 ML IV SCH (21:00)
[2017-10-26] VITALS (42 sets, daily range): BP systolic 92–139; BP diastolic 47–79
[2017-10-26] MEDS: SODIUM CHLORIDE 0.9% 1,000 ML IV SCH (00:07)
[2017-10-26] MEDS: BLOOD SUGAR DIAGNOSTIC STRIP TEST SCH ×4 (00:11→18:36)
[2017-10-26] MEDS: PIPERACILLIN/TAZ 3.375G PREMIX 50 ML IV SCH ×3 (00:19→14:58)
[2017-10-26] MEDS: INSULIN LISPRO 100 UNITS/ML SUBCUT SCH ×4 (06:00→18:00)
[2017-10-26 06:18] LABS: CHLORIDE 114 mEq/L (98-107)
[2017-10-26] MEDS: PHENYTOIN SODIUM 100MG/2ML VIAL IV SCH ×3 (06:22→21:20)
[2017-10-26] MEDS: PROPOFOL 10MG/ML 100ML 100 ML IV PRN ×2 (07:07→19:25)
[2017-10-26 08:34] LABS: BG BASE EXCESS -2.8 mmol/L (-2.0-2.0); BG CARBOXYHEMOGLOBIN 0.3 % (0.5-1.5); BG DEOXYHEMOGLOBIN 1.6 % (0.0-5.0); BG FRACTION INSPIRED OXYGEN 45; BG HCO3 ACT 19.6 mmol/L (22.0-26.0); BG METHEMOGLOBIN 0.3 % (0.0-1.5); BG OXYGEN SATURATION 98.4 % (92.0-98.5); BG OXYHEMOGLOBIN 97.8 % (94.0-97.0); BG PCO2 26.9 mmHg (35.0-45.0); BG PH 7.481 (7.350-7.450); BG SAMPLE SITE RIGHT RADIAL; BG TIDAL VOLUME(mL) 500 mL; BG VENT MODE VENT - A/C; BG VENT RATE 14 set
[2017-10-26] MEDS ORDERED: ZONISAMIDE 100MG CAPSULE PO SCH (09:00)
[2017-10-26] MEDS ORDERED: KCL 20MEQ/100ML PREMIX 100 ML IV ONE ×2 (09:30)
[2017-10-26] MEDS ORDERED: POTASSIUM CHLORIDE 20MEQ/PACKET PO NR (09:45)
[2017-10-26] MEDS: PANTOPRAZOLE SODIUM 40 MG/VIAL IV SCH (09:46)
[2017-10-26] MEDS: MULTIVITAMINS,THER W-MINERALS TABLET PO SCH (09:47)
[2017-10-26] MEDS: LEVETIRACETAM 1,500 MG in SODIUM CHLORIDE 0.9% 100 ML IV SCH ×2 (09:48→21:20)
[2017-10-26] MEDS ORDERED: DOCUSATE SODIUM 100MG CAPSULE PO SCH (10:45)
[2017-10-26] MEDS ORDERED: LORAZEPAM 2MG/ML CPJ IV PRN (10:45)
[2017-10-26] MEDS ORDERED: POTASSIUM CHLORIDE INJ 40 MEQ in DEXT 5% WATER 250 ML IV NR (11:00)
[2017-10-26 11:34] LABS: BASOPHILS % 0.4 % (0.0-2.0); EOSINOPHILS % 3.1 % (0.0-5.0); HEMATOCRIT. 30.3 % (36.0-48.0); LYMPHOCYTES % 28.9 % (20.0-50.0); MEAN CORPUSCULAR HEMOGLOBIN 26.4 pg (28.0-32.0); MEAN CORPUSCULAR VOLUME 79.8 fL (81.0-99.0); MONOCYTES % 11.6 % (2.0-8.0); PLATELET 191 x1000/uL (130-400); RED CELL DISTRIBUTION WIDTH 16.6 % (11.6-14.6)
[2017-10-26] MEDS: MAGNESIUM HYDROXIDE 400MG/5ML 30ML UDC PO PRN (11:58)
[2017-10-26] MEDS: DOCUSATE SODIUM SUGAR FREE 100MG/10ML UDC NG SCH (12:05)
[2017-10-26] MEDS: VANCOMYCIN 1250MG in DEXTROSE 5% WATER 250ML IV SCH (12:34)
[2017-10-26] MEDS: CEFEPIME 2,000 MG in DEXT 5% WATER 100 ML IV SCH (17:58)
[2017-10-27] VITALS (95 sets, daily range): BP systolic 75–178; BP diastolic 34–104
[2017-10-27] MEDS: CEFEPIME 2,000 MG in DEXT 5% WATER 100 ML IV SCH ×2 (04:23→17:00)
[2017-10-27 04:52] LABS: BASOPHILS % 0.5 % (0.0-2.0); EOSINOPHILS % 3.6 % (0.0-5.0); HEMATOCRIT. 31.3 % (36.0-48.0); HEMOGLOBIN. 10.3 g/dL (12.0-16.0); LYMPHOCYTES % 29.5 % (20.0-50.0); MEAN CORPUSCULAR HEMOGLOBIN 26.1 pg (28.0-32.0); MEAN CORPUSCULAR VOLUME 79.5 fL (81.0-99.0); MEAN PLATELET VOLUME 8.3 fl (7.4-10.4); MONOCYTES % 11.6 % (2.0-8.0); NEUTROPHILS % 54.8 % (40.0-76.0); PLATELET 216 x1000/uL (130-400); RED BLOOD CELL COUNT 3.94 mill/uL (4.2-5.4)
[2017-10-27 05:01] LABS: CHLORIDE 116 mEq/L (98-107)
[2017-10-27] MEDS: BLOOD SUGAR DIAGNOSTIC STRIP TEST SCH ×4 (06:00→18:00)
[2017-10-27] MEDS: INSULIN LISPRO 100 UNITS/ML SUBCUT SCH ×4 (06:00→18:00)
[2017-10-27] MEDS: PROPOFOL 10MG/ML 100ML 100 ML IV PRN ×2 (06:17→15:25)
[2017-10-27] MEDS: PHENYTOIN SODIUM 100MG/2ML VIAL IV SCH ×3 (06:18→21:52)
[2017-10-27 08:21] LABS: BG BASE EXCESS -3.5 mmol/L (-2.0-2.0); BG CARBOXYHEMOGLOBIN 0.3 % (0.5-1.5); BG FRACTION INSPIRED OXYGEN 40; BG METHEMOGLOBIN 0.3 % (0.0-1.5); BG OXYHEMOGLOBIN 97.4 % (94.0-97.0); BG PCO2 29.9 mmHg (35.0-45.0); BG PH 7.443 (7.350-7.450); BG PO2 114.8 mmHg (75.0-100.0); BG SAMPLE SITE RIGHT RADIAL; BG TIDAL VOLUME(mL) 500 mL; BG TOTAL HEMOGLOBIN 8.4 g/dL (12.0-18.0); BG VENT MODE VENT - A/C; BG VENT RATE 14 set
[2017-10-27] MEDS: LEVETIRACETAM 1,500 MG in SODIUM CHLORIDE 0.9% 100 ML IV SCH ×2 (09:41→21:06)
[2017-10-27] MEDS: PANTOPRAZOLE SODIUM 40 MG/VIAL IV SCH (09:42)
[2017-10-27] MEDS: DOCUSATE SODIUM SUGAR FREE 100MG/10ML UDC NG SCH (09:42)
[2017-10-27] MEDS: MULTIVITAMINS,THER W-MINERALS TABLET PO SCH (09:42)
[2017-10-27] MEDS: ZONISAMIDE 100MG CAPSULE PO SCH (09:43)
[2017-10-27] MEDS: CLONIDINE 0.1MG TABLET PO PRN (13:45)
[2017-10-28] VITALS (45 sets, daily range): BP systolic 108–177; BP diastolic 59–94
[2017-10-28] MEDS: PROPOFOL 10MG/ML 100ML 100 ML IV PRN ×3 (01:28→17:30)
[2017-10-28] MEDS: CEFEPIME 2,000 MG in DEXT 5% WATER 100 ML IV SCH ×2 (04:18→17:26)
[2017-10-28] MEDS: PHENYTOIN SODIUM 100MG/2ML VIAL IV SCH ×3 (05:23→20:20)
[2017-10-28 05:42] LABS: BASOPHILS % 0.4 % (0.0-2.0); EOSINOPHILS % 4.4 % (0.0-5.0); HEMOGLOBIN. 10.1 g/dL (12.0-16.0); LYMPHOCYTES % 30.9 % (20.0-50.0); MEAN CORPUSCULAR HEMOGLOBIN 26.1 pg (28.0-32.0); MEAN CORPUSCULAR VOLUME 79.9 fL (81.0-99.0); MEAN PLATELET VOLUME 8.7 fl (7.4-10.4); MONOCYTES % 10.4 % (2.0-8.0); NEUTROPHILS % 53.9 % (40.0-76.0); PLATELET 224 x1000/uL (130-400); RED BLOOD CELL COUNT 3.88 mill/uL (4.2-5.4); RED CELL DISTRIBUTION WIDTH 16.8 % (11.6-14.6)
[2017-10-28] MEDS: INSULIN LISPRO 100 UNITS/ML SUBCUT SCH ×4 (05:44→17:11)
[2017-10-28] MEDS: BLOOD SUGAR DIAGNOSTIC STRIP TEST SCH ×4 (05:44→17:11)
[2017-10-28 05:56] LABS: CHLORIDE 119 mEq/L (98-107)
[2017-10-28 08:01] LABS: BG BASE EXCESS -4.8 mmol/L (-2.0-2.0); BG CARBOXYHEMOGLOBIN 0.3 % (0.5-1.5); BG DEOXYHEMOGLOBIN 1.3 % (0.0-5.0); BG FRACTION INSPIRED OXYGEN 40; BG HCO3 ACT 18.6 mmol/L (22.0-26.0); BG METHEMOGLOBIN 0.3 % (0.0-1.5); BG OXYGEN SATURATION 98.7 % (92.0-98.5); BG OXYHEMOGLOBIN 98.1 % (94.0-97.0); BG PCO2 28.9 mmHg (35.0-45.0); BG PH 7.427 (7.350-7.450); BG PO2 164.9 mmHg (75.0-100.0); BG SAMPLE SITE RIGHT RADIAL; BG TIDAL VOLUME(mL) 500 mL; BG TOTAL HEMOGLOBIN 10.4 g/dL (12.0-18.0); BG VENT MODE VENT - A/C; BG VENT RATE 14 set
[2017-10-28] MEDS: ZONISAMIDE 100MG CAPSULE PO SCH (09:24)
[2017-10-28] MEDS: LEVETIRACETAM 1,500 MG in SODIUM CHLORIDE 0.9% 100 ML IV SCH ×2 (09:24→20:20)
[2017-10-28] MEDS: MULTIVITAMINS,THER W-MINERALS TABLET PO SCH (09:24)
[2017-10-28] MEDS: DOCUSATE SODIUM SUGAR FREE 100MG/10ML UDC NG SCH (09:24)
[2017-10-28] MEDS: PANTOPRAZOLE SODIUM 40 MG/VIAL IV SCH (09:24)
[2017-10-28] MEDS ORDERED: METRONIDAZOLE 500 MG PREMIX 100 ML IV SCH (12:00)
[2017-10-28] MEDS: METRONIDAZOLE 500 MG PREMIX 100 ML IV SCH ×2 (12:33→20:20)
[2017-10-29] VITALS (33 sets, daily range): BP systolic 107–160; BP diastolic 55–84
[2017-10-29] MEDS: BLOOD SUGAR DIAGNOSTIC STRIP TEST SCH ×4 (00:17→18:08)
[2017-10-29] MEDS: METRONIDAZOLE 500 MG PREMIX 100 ML IV SCH ×3 (03:16→20:25)
[2017-10-29] MEDS: CEFEPIME 2,000 MG in DEXT 5% WATER 100 ML IV SCH ×2 (04:47→17:15)
[2017-10-29] MEDS: PROPOFOL 10MG/ML 100ML 100 ML IV PRN ×3 (04:54→22:23)
[2017-10-29 05:39] LABS: BASOPHILS % 0.5 % (0.0-2.0); HEMOGLOBIN. 11.1 g/dL (12.0-16.0); LYMPHOCYTES % 24.3 % (20.0-50.0); MEAN CORPUSCULAR HEMOGLOBIN 25.9 pg (28.0-32.0); MEAN CORPUSCULAR VOLUME 79.5 fL (81.0-99.0); MEAN PLATELET VOLUME 8.9 fl (7.4-10.4); MONOCYTES % 8.1 % (2.0-8.0); NEUTROPHILS % 63.1 % (40.0-76.0); PLATELET 274 x1000/uL (130-400); RED BLOOD CELL COUNT 4.28 mill/uL (4.2-5.4); RED CELL DISTRIBUTION WIDTH 16.6 % (11.6-14.6)
[2017-10-29 05:42] LABS: CHLORIDE 117 mEq/L (98-107)
[2017-10-29] MEDS: INSULIN LISPRO 100 UNITS/ML SUBCUT SCH ×4 (06:00→18:00)
[2017-10-29] MEDS: PHENYTOIN SODIUM 100MG/2ML VIAL IV SCH ×3 (06:12→21:42)
[2017-10-29 08:20] LABS: BG BASE EXCESS -5.1 mmol/L (-2.0-2.0); BG CARBOXYHEMOGLOBIN 0.3 % (0.5-1.5); BG DEOXYHEMOGLOBIN 1.4 % (0.0-5.0); BG HCO3 ACT 18.3 mmol/L (22.0-26.0); BG METHEMOGLOBIN 0.3 % (0.0-1.5); BG OXYGEN SATURATION 98.6 % (92.0-98.5); BG PCO2 29.1 mmHg (35.0-45.0); BG PH 7.417 (7.350-7.450); BG PO2 138.9 mmHg (75.0-100.0); BG SAMPLE SITE RIGHT RADIAL; BG TIDAL VOLUME(mL) 500 mL; BG TOTAL HEMOGLOBIN 11.1 g/dL (12.0-18.0); BG VENT MODE VENT - A/C; BG VENT RATE 14 set
[2017-10-29] MEDS ORDERED: POTASSIUM CHLORIDE 20MEQ/PACKET PO NR (09:00)
[2017-10-29] MEDS ORDERED: PHENYTOIN SODIUM 700 MG in SODIUM CHLORIDE 0.9% 100 ML IV SCH (09:00)
[2017-10-29] MEDS ORDERED: ZONISAMIDE 100MG CAPSULE PO SCH (09:00)
[2017-10-29] MEDS: MULTIVITAMINS,THER W-MINERALS TABLET PO SCH (09:52)
[2017-10-29] MEDS: LEVETIRACETAM 1,500 MG in SODIUM CHLORIDE 0.9% 100 ML IV SCH ×2 (09:52→20:36)
[2017-10-29] MEDS: PANTOPRAZOLE SODIUM 40 MG/VIAL IV SCH (09:52)
[2017-10-29] MEDS: DOCUSATE SODIUM SUGAR FREE 100MG/10ML UDC NG SCH (09:52)
[2017-10-29] MEDS ORDERED: LIDOCAINE HCL/PF 1% 10 MG/ML 30ML VIAL ONE (10:47)
[2017-10-30] VITALS (44 sets, daily range): BP systolic 82–142; BP diastolic 43–93
[2017-10-30] MEDS ORDERED: PROPOFOL 10MG/ML 100ML 100 ML IV PRN (00:45)
[2017-10-30] MEDS: BLOOD SUGAR DIAGNOSTIC STRIP TEST SCH ×5 (00:55→23:07)
[2017-10-30] MEDS: METRONIDAZOLE 500 MG PREMIX 100 ML IV SCH ×3 (03:19→19:26)
[2017-10-30] MEDS: PROPOFOL 10MG/ML 100ML 100 ML IV PRN ×3 (03:46→17:26)
[2017-10-30] MEDS: CEFEPIME 2,000 MG in DEXT 5% WATER 100 ML IV SCH ×2 (04:36→17:23)
[2017-10-30] MEDS: PHENYTOIN SODIUM 100MG/2ML VIAL IV SCH ×3 (05:32→21:00)
[2017-10-30] MEDS: INSULIN LISPRO 100 UNITS/ML SUBCUT SCH ×5 (05:45→23:07)
[2017-10-30 06:05] LABS: MEAN CORPUSCULAR HEMOGLOBIN 26.3 pg (28.0-32.0); MEAN CORPUSCULAR VOLUME 81.4 fL (81.0-99.0); PLATELET 275 x1000/uL (130-400); RED BLOOD CELL COUNT 4.17 mill/uL (4.2-5.4); RED CELL DISTRIBUTION WIDTH 17.3 % (11.6-14.6)
[2017-10-30 06:11] LABS: CHLORIDE 117 mEq/L (98-107)
[2017-10-30] MEDS ORDERED: LORAZEPAM 2MG/ML CPJ IV PRN (07:00)
[2017-10-30] MEDS: DOCUSATE SODIUM SUGAR FREE 100MG/10ML UDC NG SCH (09:57)
[2017-10-30] MEDS: LEVETIRACETAM 1,500 MG in SODIUM CHLORIDE 0.9% 100 ML IV SCH (09:57)
[2017-10-30] MEDS: PANTOPRAZOLE SODIUM 40 MG/VIAL IV SCH (09:57)
[2017-10-30] MEDS: MULTIVITAMINS,THER W-MINERALS TABLET PO SCH (09:57)
[2017-10-30] MEDS ORDERED: ZONISAMIDE 100MG CAPSULE PO SCH (10:18)
[2017-10-30] MEDS ORDERED: PHENYTOIN SODIUM 500 MG in SODIUM CHLORIDE 0.9% 50 ML IV NR (12:00)
[2017-10-30] MEDS: LEVETIRACETAM 2,000 MG in SODIUM CHLORIDE 0.9% 100 ML IV SCH (20:03)
[2017-10-31] VITALS (33 sets, daily range): BP systolic 92–137; BP diastolic 47–77
[2017-10-31] MEDS: PROPOFOL 10MG/ML 100ML 100 ML IV PRN ×4 (01:06→21:19)
[2017-10-31] MEDS: METRONIDAZOLE 500 MG PREMIX 100 ML IV SCH ×3 (03:45→20:39)
[2017-10-31] MEDS: CEFEPIME 2,000 MG in DEXT 5% WATER 100 ML IV SCH ×2 (04:16→16:12)
[2017-10-31] MEDS: INSULIN LISPRO 100 UNITS/ML SUBCUT SCH ×3 (05:05→18:00)
[2017-10-31] MEDS: PHENYTOIN SODIUM 100MG/2ML VIAL IV SCH ×3 (05:05→21:27)
[2017-10-31] MEDS: BLOOD SUGAR DIAGNOSTIC STRIP TEST SCH ×2 (05:05→18:00)
[2017-10-31 06:40] LABS: BASOPHILS % 0.3 % (0.0-2.0); EOSINOPHILS % 3.6 % (0.0-5.0); HEMATOCRIT. 27.7 % (36.0-48.0); HEMOGLOBIN. 9.1 g/dL (12.0-16.0); MEAN CORPUSCULAR HEMOGLOBIN 26.2 pg (28.0-32.0); MEAN CORPUSCULAR VOLUME 79.3 fL (81.0-99.0); MEAN PLATELET VOLUME 8.9 fl (7.4-10.4); MONOCYTES % 10.7 % (2.0-8.0); NEUTROPHILS % 63.4 % (40.0-76.0); PLATELET 294 x1000/uL (130-400); RED BLOOD CELL COUNT 3.49 mill/uL (4.2-5.4); RED CELL DISTRIBUTION WIDTH 17.1 % (11.6-14.6)
[2017-10-31 06:43] LABS: CHLORIDE 117 mEq/L (98-107)
[2017-10-31 08:32] LABS: BG BASE EXCESS -7.2 mmol/L (-2.0-2.0); BG CARBOXYHEMOGLOBIN 0.3 % (0.5-1.5); BG DEOXYHEMOGLOBIN 1.1 % (0.0-5.0); BG HCO3 ACT 16.8 mmol/L (22.0-26.0); BG METHEMOGLOBIN 0.3 % (0.0-1.5); BG OXYGEN SATURATION 98.9 % (92.0-98.5); BG OXYHEMOGLOBIN 98.3 % (94.0-97.0); BG PCO2 28.4 mmHg (35.0-45.0); BG PO2 168.1 mmHg (75.0-100.0); BG SAMPLE SITE RIGHT RADIAL; BG TIDAL VOLUME(mL) 500 mL; BG TOTAL HEMOGLOBIN 8.8 g/dL (12.0-18.0); BG VENT MODE VENT - A/C; BG VENT RATE 14 set
[2017-10-31] MEDS: DOCUSATE SODIUM SUGAR FREE 100MG/10ML UDC NG SCH (08:38)
[2017-10-31] MEDS: ZONISAMIDE 100MG CAPSULE PO SCH (08:38)
[2017-10-31] MEDS: MULTIVITAMINS,THER W-MINERALS TABLET PO SCH (08:40)
[2017-10-31 09:39] LABS: INR 1.1; PROTHROMBIN TIME 10.6 sec (9.1-11.1)
[2017-10-31 10:05] LABS: TOTAL IRON BINDING CAPACITY 119 ug/dL (250-450)
[2017-10-31] MEDS: LEVETIRACETAM 2,000 MG in SODIUM CHLORIDE 0.9% 100 ML IV SCH ×2 (10:37→20:39)
[2017-10-31 10:47] LABS: FOLIC ACID (FOLATE) SERUM >20 ng/mL ng/mL (>5.38)
[2017-10-31 10:59] LABS: VITAMIN B12 SERUM 1367 pg/mL (211-911)
[2017-10-31 11:40] LABS: FERRITIN 293 ng/mL (10-291)
[2017-10-31] MEDS ORDERED: FUROSEMIDE 20MG/2ML VIAL IVP SCH (14:45)
[2017-10-31] MEDS: PANTOPRAZOLE SODIUM 40 MG/VIAL IV SCH (21:25)
[2017-11-01] VITALS (36 sets, daily range): BP systolic 78–147; BP diastolic 51–90
[2017-11-01] MEDS: METRONIDAZOLE 500 MG PREMIX 100 ML IV SCH ×3 (03:04→20:14)
[2017-11-01] MEDS: PROPOFOL 10MG/ML 100ML 100 ML IV PRN ×4 (04:02→20:15)
[2017-11-01] MEDS: CEFEPIME 2,000 MG in DEXT 5% WATER 100 ML IV SCH ×2 (04:02→17:19)
[2017-11-01 05:38] LABS: EOSINOPHILS % 5.1 % (0.0-5.0); HEMOGLOBIN. 9.2 g/dL (12.0-16.0); LYMPHOCYTES % 30.2 % (20.0-50.0); MEAN CORPUSCULAR HEMOGLOBIN 26.2 pg (28.0-32.0); MEAN CORPUSCULAR VOLUME 79.7 fL (81.0-99.0); MEAN PLATELET VOLUME 8.5 fl (7.4-10.4); MONOCYTES % 9.6 % (2.0-8.0); NEUTROPHILS % 54.1 % (40.0-76.0); PLATELET 314 x1000/uL (130-400); RED BLOOD CELL COUNT 3.52 mill/uL (4.2-5.4); RED CELL DISTRIBUTION WIDTH 17.2 % (11.6-14.6)
[2017-11-01 05:50] LABS: CHLORIDE 118 mEq/L (98-107)
[2017-11-01] MEDS: INSULIN LISPRO 100 UNITS/ML SUBCUT SCH ×4 (06:00→17:27)
[2017-11-01] MEDS: BLOOD SUGAR DIAGNOSTIC STRIP TEST SCH ×4 (06:00→17:27)
[2017-11-01] MEDS: PHENYTOIN SODIUM 100MG/2ML VIAL IV SCH ×3 (06:05→21:58)
[2017-11-01 08:38] LABS: BG BASE EXCESS -7.5 mmol/L (-2.0-2.0); BG CARBOXYHEMOGLOBIN 0.3 % (0.5-1.5); BG DEOXYHEMOGLOBIN 1.2 % (0.0-5.0); BG FRACTION INSPIRED OXYGEN 40; BG METHEMOGLOBIN 0.2 % (0.0-1.5); BG OXYGEN SATURATION 98.8 % (92.0-98.5); BG OXYHEMOGLOBIN 98.3 % (94.0-97.0); BG PCO2 30.8 mmHg (35.0-45.0); BG PO2 175.5 mmHg (75.0-100.0); BG SAMPLE SITE RIGHT RADIAL; BG TIDAL VOLUME(mL) 500 mL; BG TOTAL HEMOGLOBIN 9.3 g/dL (12.0-18.0); BG VENT MODE VENT - A/C; BG VENT RATE 14 set
[2017-11-01] MEDS: LEVETIRACETAM 2,000 MG in SODIUM CHLORIDE 0.9% 100 ML IV SCH ×2 (09:25→21:01)
[2017-11-01] MEDS: PANTOPRAZOLE SODIUM 40 MG/VIAL IV SCH (09:25)
[2017-11-01] MEDS: ZONISAMIDE 100MG CAPSULE PO SCH (09:25)
[2017-11-01] MEDS: MULTIVITAMINS,THER W-MINERALS TABLET PO SCH (09:25)
[2017-11-01] MEDS: DOCUSATE SODIUM SUGAR FREE 100MG/10ML UDC NG SCH (09:25)
[2017-11-01] MEDS ORDERED: POTASSIUM CHLORIDE 20MEQ/PACKET PO NR (13:15)
[2017-11-01 19:59] LABS: HEMATOCRIT 35.6 % (36.0-48.0); HEMOGLOBIN 11.4 g/dL (12.0-16.0); MEAN CORPUSCULAR HEMOGLOBIN 25.9 pg (28.0-32.0); MEAN CORPUSCULAR VOLUME 80.8 fL (81.0-99.0); PLATELET 341 x1000/uL (130-400); RED CELL DISTRIBUTION WIDTH 17.5 % (11.6-14.6)
[2017-11-02] VITALS (59 sets, daily range): BP systolic 75–158; BP diastolic 41–78
[2017-11-02] MEDS: PROPOFOL 10MG/ML 100ML 100 ML IV PRN ×4 (00:55→20:35)
[2017-11-02] MEDS: METRONIDAZOLE 500 MG PREMIX 100 ML IV SCH ×3 (03:26→20:40)
[2017-11-02] MEDS: CEFEPIME 2,000 MG in DEXT 5% WATER 100 ML IV SCH ×2 (04:35→17:26)
[2017-11-02] MEDS: PHENYTOIN SODIUM 100MG/2ML VIAL IV SCH ×3 (05:04→21:13)
[2017-11-02] MEDS: ACETAMINOPHEN 650MG/20.3ML UDC PO PRN ×2 (05:05→17:26)
[2017-11-02] MEDS: DILTIAZEM HCL 30MG TABLET PO PRN (05:10)
[2017-11-02] MEDS: BLOOD SUGAR DIAGNOSTIC STRIP TEST SCH ×4 (05:23→17:10)
[2017-11-02 05:55] LABS: HEMATOCRIT. 29.4 % (36.0-48.0); HEMOGLOBIN. 9.6 g/dL (12.0-16.0); MEAN CORPUSCULAR VOLUME 79.8 fL (81.0-99.0); MEAN PLATELET VOLUME 8.8 fl (7.4-10.4); PLATELET 364 x1000/uL (130-400); RED BLOOD CELL COUNT 3.68 mill/uL (4.2-5.4)
[2017-11-02] MEDS: INSULIN LISPRO 100 UNITS/ML SUBCUT SCH ×4 (05:59→17:10)
[2017-11-02] MEDS ORDERED: PROPOFOL 10MG/ML 100ML 100 ML IV PRN (06:15)
[2017-11-02 06:19] LABS: CHLORIDE 118 mEq/L (98-107)
[2017-11-02 07:47] LABS: BG BASE EXCESS -8.8 mmol/L (-2.0-2.0); BG CARBOXYHEMOGLOBIN 0.3 % (0.5-1.5); BG DEOXYHEMOGLOBIN 2.7 % (0.0-5.0); BG HCO3 ACT 15.4 mmol/L (22.0-26.0); BG METHEMOGLOBIN 0.4 % (0.0-1.5); BG OXYGEN SATURATION 97.3 % (92.0-98.5); BG OXYHEMOGLOBIN 96.6 % (94.0-97.0); BG PCO2 27.5 mmHg (35.0-45.0); BG PH 7.365 (7.350-7.450); BG SAMPLE SITE RIGHT RADIAL; BG TIDAL VOLUME(mL) 500 mL; BG TOTAL HEMOGLOBIN 9.5 g/dL (12.0-18.0); BG VENT MODE VENT - A/C; BG VENT RATE 14 set
[2017-11-02 08:36] LABS: PLATELET ESTIMATE NORMAL
[2017-11-02] MEDS: LEVETIRACETAM 2,000 MG in SODIUM CHLORIDE 0.9% 100 ML IV SCH ×2 (10:02→21:06)
[2017-11-02] MEDS: ZONISAMIDE 100MG CAPSULE PO SCH (10:02)
[2017-11-02] MEDS: MULTIVITAMINS,THER W-MINERALS TABLET PO SCH (10:02)
[2017-11-02] MEDS: PANTOPRAZOLE SODIUM 40 MG/VIAL IV SCH (10:02)
[2017-11-02] MEDS: DOCUSATE SODIUM SUGAR FREE 100MG/10ML UDC NG SCH (10:02)
[2017-11-03] VITALS (31 sets, daily range): BP systolic 103–141; BP diastolic 47–76
[2017-11-03] MEDS: BLOOD SUGAR DIAGNOSTIC STRIP TEST SCH ×4 (00:46→18:46)
[2017-11-03] MEDS: PROPOFOL 10MG/ML 100ML 100 ML IV PRN ×6 (01:48→23:36)
[2017-11-03] MEDS: METRONIDAZOLE 500 MG PREMIX 100 ML IV SCH ×2 (04:25→12:26)
[2017-11-03] MEDS: PHENYTOIN SODIUM 100MG/2ML VIAL IV SCH ×3 (05:25→21:54)
[2017-11-03 05:30] LABS: BASOPHILS % 0.6 % (0.0-2.0); EOSINOPHILS % 1.3 % (0.0-5.0); HEMATOCRIT. 30.7 % (36.0-48.0); LYMPHOCYTES % 8.3 % (20.0-50.0); MEAN CORPUSCULAR HEMOGLOBIN 26.3 pg (28.0-32.0); MEAN CORPUSCULAR VOLUME 80.4 fL (81.0-99.0); MEAN PLATELET VOLUME 8.7 fl (7.4-10.4); MONOCYTES % 4.7 % (2.0-8.0); NEUTROPHILS % 85.1 % (40.0-76.0); PLATELET 327 x1000/uL (130-400); RED BLOOD CELL COUNT 3.82 mill/uL (4.2-5.4); RED CELL DISTRIBUTION WIDTH 17.9 % (11.6-14.6)
[2017-11-03 05:34] LABS: CHLORIDE 113 mEq/L (98-107)
[2017-11-03] MEDS: INSULIN LISPRO 100 UNITS/ML SUBCUT SCH ×4 (06:00→18:00)
[2017-11-03] MEDS: DOCUSATE SODIUM SUGAR FREE 100MG/10ML UDC NG SCH (08:29)
[2017-11-03] MEDS: MULTIVITAMINS,THER W-MINERALS TABLET PO SCH (08:29)
[2017-11-03] MEDS: ZONISAMIDE 100MG CAPSULE PO SCH (08:29)
[2017-11-03] MEDS: LEVETIRACETAM 2,000 MG in SODIUM CHLORIDE 0.9% 100 ML IV SCH ×2 (08:29→20:33)
[2017-11-03] MEDS: PANTOPRAZOLE SODIUM 40 MG/VIAL IV SCH (08:30)
[2017-11-03 08:48] LABS: BG BASE EXCESS -10.3 mmol/L (-2.0-2.0); BG CARBOXYHEMOGLOBIN 0.3 % (0.5-1.5); BG DEOXYHEMOGLOBIN 2.2 % (0.0-5.0); BG HCO3 ACT 14.1 mmol/L (22.0-26.0); BG OXYGEN SATURATION 97.8 % (92.0-98.5); BG OXYHEMOGLOBIN 97.5 % (94.0-97.0); BG PCO2 26.6 mmHg (35.0-45.0); BG PH 7.342 (7.350-7.450); BG PO2 106.7 mmHg (75.0-100.0); BG SAMPLE SITE RIGHT RADIAL; BG TIDAL VOLUME(mL) 500 mL; BG TOTAL HEMOGLOBIN 9.8 g/dL (12.0-18.0); BG VENT MODE VENT - A/C; BG VENT RATE 14 set
[2017-11-03 11:20] LABS: T4 FREE 0.91 ng/dL (0.76-1.46)
[2017-11-03] MEDS: PIPERACILLIN/TAZ 3.375G PREMIX 50 ML IV SCH (16:06)
[2017-11-04] VITALS (48 sets, daily range): BP systolic 84–156; BP diastolic 41–94
[2017-11-04] MEDS: PIPERACILLIN/TAZ 3.375G PREMIX 50 ML IV SCH ×3 (02:37→16:53)
[2017-11-04] MEDS: PROPOFOL 10MG/ML 100ML 100 ML IV PRN ×2 (04:12→08:33)
[2017-11-04 05:33] LABS: BASOPHILS % 0.3 % (0.0-2.0); EOSINOPHILS % 1.9 % (0.0-5.0); HEMATOCRIT. 30.4 % (36.0-48.0); HEMOGLOBIN. 9.9 g/dL (12.0-16.0); LYMPHOCYTES % 11.8 % (20.0-50.0); MEAN CORPUSCULAR HEMOGLOBIN 26.1 pg (28.0-32.0); MEAN CORPUSCULAR VOLUME 79.6 fL (81.0-99.0); MEAN PLATELET VOLUME 8.6 fl (7.4-10.4); MONOCYTES % 5.5 % (2.0-8.0); NEUTROPHILS % 80.5 % (40.0-76.0); PLATELET 342 x1000/uL (130-400); RED BLOOD CELL COUNT 3.82 mill/uL (4.2-5.4); RED CELL DISTRIBUTION WIDTH 18.2 % (11.6-14.6)
[2017-11-04 05:44] LABS: CHLORIDE 114 mEq/L (98-107)
[2017-11-04] MEDS: INSULIN LISPRO 100 UNITS/ML SUBCUT SCH ×4 (06:00→16:49)
[2017-11-04] MEDS: BLOOD SUGAR DIAGNOSTIC STRIP TEST SCH ×4 (06:00→16:49)
[2017-11-04] MEDS: PHENYTOIN SODIUM 100MG/2ML VIAL IV SCH ×3 (06:15→21:43)
[2017-11-04 07:54] LABS: BG BASE EXCESS -10.2 mmol/L (-2.0-2.0); BG CARBOXYHEMOGLOBIN 0.3 % (0.5-1.5); BG DEOXYHEMOGLOBIN 1.5 % (0.0-5.0); BG FRACTION INSPIRED OXYGEN 35; BG HCO3 ACT 14.1 mmol/L (22.0-26.0); BG METHEMOGLOBIN 0.3 % (0.0-1.5); BG OXYGEN SATURATION 98.5 % (92.0-98.5); BG OXYHEMOGLOBIN 97.9 % (94.0-97.0); BG PCO2 26.3 mmHg (35.0-45.0); BG PH 7.346 (7.350-7.450); BG SAMPLE SITE RIGHT BRACHIAL; BG TIDAL VOLUME(mL) 500 mL; BG TOTAL HEMOGLOBIN 10.6 g/dL (12.0-18.0); BG VENT MODE VENT - A/C; BG VENT RATE 12 set
[2017-11-04] MEDS: LEVETIRACETAM 2,000 MG in SODIUM CHLORIDE 0.9% 100 ML IV SCH ×2 (08:15→21:43)
[2017-11-04] MEDS: PANTOPRAZOLE SODIUM 40 MG/VIAL IV SCH (08:15)
[2017-11-04] MEDS: MULTIVITAMINS,THER W-MINERALS TABLET PO SCH (08:15)
[2017-11-04] MEDS: DOCUSATE SODIUM SUGAR FREE 100MG/10ML UDC NG SCH (08:15)
[2017-11-04] MEDS: ZONISAMIDE 100MG CAPSULE PO SCH (08:15)
[2017-11-04] MEDS ORDERED: PHENYTOIN SODIUM 300 MG in SODIUM CHLORIDE 0.9% 50 ML IV NR (10:30)
[2017-11-04] MEDS ORDERED: LIDOCAINE HCL 1% 10 MG/ML 10ML VIAL ONE (10:37)
[2017-11-04] MEDS: MIDAZOLAM HCL 100 MG in DEXT 5% WATER 80 ML IV PRN ×2 (10:48→17:15)
[2017-11-04] MEDS: ACETAMINOPHEN 650MG/20.3ML UDC PO PRN (12:11)
[2017-11-04 12:45] LABS: CLARITY URINE CLEAR (CLEAR); COLOR URINE YELLOW (YELLOW); KETONES URINE NEGATIVE (NEGATIVE); LEUKOCYTE ESTERASE URINE TRACE (NEGATIVE); NITRITE URINE NEGATIVE (NEGATIVE); OCCULT BLOOD URINE 2+ (NEGATIVE); PROTEIN URINE 3+ (NEGATIVE); SPECIFIC GRAVITY URINE 1.021 (1.005-1.030); UROBILINOGEN URINE 0.2 E.U./dL (0.2-1.0)
[2017-11-04] MEDS: DILTIAZEM HCL 30MG TABLET PO PRN (13:44)
[2017-11-04] MEDS ORDERED: DIGOXIN 500MCG/2ML AMP IV NR (13:45)
[2017-11-04] MEDS ORDERED: DILTIAZEM HCL 60MG TABLET PO PRN (14:03)
[2017-11-04] MEDS: FENTANYL CITRATE/PF 500 MCG in SODIUM CHLORIDE 0.9% 40 ML IV PRN (16:10)
[2017-11-04] MEDS ORDERED: VANCOMYCIN 2,000 MG in DEXT 5% WATER 500 ML IV NR (18:00)
[2017-11-04] MEDS ORDERED: IOHEXOL-300 100 ML BOTTLE ONE (18:57)
[2017-11-05] VITALS (36 sets, daily range): BP systolic 87–139; BP diastolic 42–75
[2017-11-05] MEDS: FENTANYL CITRATE/PF 500 MCG in SODIUM CHLORIDE 0.9% 40 ML IV PRN (00:44)
[2017-11-05] MEDS: PIPERACILLIN/TAZ 3.375G PREMIX 50 ML IV SCH ×3 (02:41→18:19)
[2017-11-05] MEDS: PHENYTOIN SODIUM 100MG/2ML VIAL IV SCH ×3 (05:21→21:24)
[2017-11-05 05:31] LABS: BASOPHILS % 0.3 % (0.0-2.0); EOSINOPHILS % 1.3 % (0.0-5.0); HEMATOCRIT. 24.4 % (36.0-48.0); HEMOGLOBIN. 8.1 g/dL (12.0-16.0); LYMPHOCYTES % 15.1 % (20.0-50.0); MEAN CORPUSCULAR HEMOGLOBIN 26.3 pg (28.0-32.0); MEAN PLATELET VOLUME 8.8 fl (7.4-10.4); MONOCYTES % 7.5 % (2.0-8.0); NEUTROPHILS % 75.8 % (40.0-76.0); PLATELET 276 x1000/uL (130-400); RED BLOOD CELL COUNT 3.08 mill/uL (4.2-5.4); RED CELL DISTRIBUTION WIDTH 18.1 % (11.6-14.6)
[2017-11-05 05:46] LABS: CHLORIDE 114 mEq/L (98-107)
[2017-11-05 05:52] LABS: PHOSPHORUS 3.1 mg/dL (2.5-4.9)
[2017-11-05] MEDS: INSULIN LISPRO 100 UNITS/ML SUBCUT SCH ×4 (06:00→18:00)
[2017-11-05] MEDS: BLOOD SUGAR DIAGNOSTIC STRIP TEST SCH ×4 (06:00→18:00)
[2017-11-05] MEDS: LEVETIRACETAM 2,000 MG in SODIUM CHLORIDE 0.9% 100 ML IV SCH ×2 (09:50→21:25)
[2017-11-05] MEDS: DOCUSATE SODIUM SUGAR FREE 100MG/10ML UDC NG SCH (10:08)
[2017-11-05] MEDS: PANTOPRAZOLE SODIUM 40 MG/VIAL IV SCH (10:08)
[2017-11-05] MEDS: ZONISAMIDE 100MG CAPSULE PO SCH (10:08)
[2017-11-05] MEDS: MULTIVITAMINS,THER W-MINERALS TABLET PO SCH (10:09)
[2017-11-05] MEDS: MAGNESIUM HYDROXIDE 400MG/5ML 30ML UDC PO PRN (10:09)
[2017-11-05] MEDS: DEXT 5%/0.45% NACL 500ML 1,000 ML IV SCH (11:00)
[2017-11-05] MEDS ORDERED: LORAZEPAM 2MG/ML CPJ IV PRN (11:00)
[2017-11-05] MEDS ORDERED: VANCOMYCIN 1250MG in DEXTROSE 5% WATER 250ML IV SCH (12:00)
[2017-11-05] MEDS ORDERED: NA PHOS,M-B/NA PHOS,DI-BA ENEMA 118ML PR SCH (12:15)
[2017-11-05] MEDS ORDERED: BISACODYL 10MG SUPP PR PRN (12:15)
[2017-11-05] MEDS: RISPERIDONE 0.5MG TABLET GT SCH ×2 (12:58→18:19)
[2017-11-05 14:01] LABS: PROTHROMBIN TIME 10.5 sec (9.1-11.1)
[2017-11-05] MEDS ORDERED: HEPARIN 100 UNITS/1 ML VIAL IVF PRN (15:00)
[2017-11-05] MEDS: AMIODARONE HCL 200 MG TABLET PO SCH ×2 (16:28→18:19)
[2017-11-06] VITALS (35 sets, daily range): BP systolic 108–149; BP diastolic 58–96
[2017-11-06] MEDS: HYDROMORPHONE HCL/PF 2MG/ML CPJ IV PRN ×2 (00:54→06:03)
[2017-11-06] MEDS: PHENYTOIN SODIUM 100MG/2ML VIAL IV SCH ×3 (02:33→22:00)
[2017-11-06] MEDS: PIPERACILLIN/TAZ 3.375G PREMIX 50 ML IV SCH ×3 (02:36→19:08)
[2017-11-06 05:55] LABS: EOSINOPHILS % 2.4 % (0.0-5.0); HEMATOCRIT. 28.6 % (36.0-48.0); HEMOGLOBIN. 9.6 g/dL (12.0-16.0); MEAN CORPUSCULAR HEMOGLOBIN 26.4 pg (28.0-32.0); MEAN CORPUSCULAR VOLUME 78.7 fL (81.0-99.0); MEAN PLATELET VOLUME 8.9 fl (7.4-10.4); MONOCYTES % 10.5 % (2.0-8.0); NEUTROPHILS % 59.1 % (40.0-76.0); PLATELET 368 x1000/uL (130-400); RED BLOOD CELL COUNT 3.63 mill/uL (4.2-5.4); RED CELL DISTRIBUTION WIDTH 18.7 % (11.6-14.6)
[2017-11-06 06:02] LABS: CHLORIDE 116 mEq/L (98-107)
[2017-11-06] MEDS: DOCUSATE SODIUM SUGAR FREE 100MG/10ML UDC NG SCH (09:00)
[2017-11-06] MEDS: AMIODARONE HCL 200 MG TABLET PO SCH ×3 (09:00→19:03)
[2017-11-06] MEDS: RISPERIDONE 0.5MG TABLET GT SCH ×2 (09:00→19:03)
[2017-11-06] MEDS: MULTIVITAMINS,THER W-MINERALS TABLET PO SCH (09:00)
[2017-11-06] MEDS: ZONISAMIDE 100MG CAPSULE PO SCH (09:00)
[2017-11-06] MEDS: BLOOD SUGAR DIAGNOSTIC STRIP TEST SCH ×3 (09:20→12:00)
[2017-11-06] MEDS: PANTOPRAZOLE SODIUM 40 MG/VIAL IV SCH (09:30)
[2017-11-06] MEDS: DEXT 5%/0.45% NACL 500ML 1,000 ML IV SCH ×2 (09:30→20:20)
[2017-11-06] MEDS: LEVETIRACETAM 2,000 MG in SODIUM CHLORIDE 0.9% 100 ML IV SCH ×2 (09:41→21:59)
[2017-11-06] MEDS: INSULIN LISPRO 100 UNITS/ML SUBCUT SCH ×3 (09:42→12:00)
[2017-11-06] MEDS ORDERED: SUCCINYLCHOLINE CHLORIDE 200MG/10ML VIAL IV ONE (13:43)
[2017-11-06] MEDS ORDERED: ROCURONIUM BROMIDE 10MG/ML VIAL 5ML IV ONE (13:43)
[2017-11-06] MEDS ORDERED: MIDAZOLAM HCL 2 MG/2 ML VIAL ONE (13:43)
[2017-11-06] MEDS ORDERED: PHENYLEPHRINE HCL 10 MG/ML 1ML (IV VIAL) IV ONE ×2 (14:37→14:38)
[2017-11-06] MEDS ORDERED: EPHEDRINE SULFATE 50MG/ML VIAL ONE (14:38)
[2017-11-07] VITALS (33 sets, daily range): BP systolic 133–169; BP diastolic 60–97
[2017-11-07 05:12] LABS: INR 1.1; PARTIAL THROMBOPLASTIN TIME 34.5 sec (23.4-31.0); PROTHROMBIN TIME 10.7 sec (9.1-11.1)
[2017-11-07] MEDS: BLOOD SUGAR DIAGNOSTIC STRIP TEST SCH ×4 (06:00→18:34)
[2017-11-07] MEDS: INSULIN LISPRO 100 UNITS/ML SUBCUT SCH ×4 (06:00→18:00)
[2017-11-07] MEDS: PHENYTOIN SODIUM 100MG/2ML VIAL IV SCH ×3 (07:52→22:50)
[2017-11-07] MEDS: PIPERACILLIN/TAZ 3.375G PREMIX 50 ML IV SCH ×3 (07:52→18:22)
[2017-11-07] MEDS: RISPERIDONE 0.5MG TABLET GT SCH ×2 (09:00→18:32)
[2017-11-07] MEDS: DOCUSATE SODIUM SUGAR FREE 100MG/10ML UDC NG SCH (09:00)
[2017-11-07] MEDS: MULTIVITAMINS,THER W-MINERALS TABLET PO SCH (09:00)
[2017-11-07] MEDS: PANTOPRAZOLE SODIUM 40 MG/VIAL IV SCH (09:48)
[2017-11-07] MEDS: AMIODARONE HCL 200 MG TABLET PO SCH ×3 (09:48→18:32)
[2017-11-07] MEDS: LEVETIRACETAM 2,000 MG in SODIUM CHLORIDE 0.9% 100 ML IV SCH ×3 (09:54→23:11)
[2017-11-07] MEDS: ZONISAMIDE 100MG CAPSULE PO SCH (09:54)
[2017-11-07] MEDS: DEXT 5%/0.45% NACL 500ML 1,000 ML IV SCH ×2 (13:00→23:02)
[2017-11-07 13:07] LABS: BASOPHILS % 0.5 % (0.0-2.0); EOSINOPHILS % 2.5 % (0.0-5.0); HEMATOCRIT. 27.1 % (36.0-48.0); HEMOGLOBIN. 9.2 g/dL (12.0-16.0); LYMPHOCYTES % 22.3 % (20.0-50.0); MEAN CORPUSCULAR HEMOGLOBIN 26.3 pg (28.0-32.0); MEAN CORPUSCULAR VOLUME 77.3 fL (81.0-99.0); MONOCYTES % 9.3 % (2.0-8.0); NEUTROPHILS % 65.4 % (40.0-76.0); PLATELET 424 x1000/uL (130-400); RED BLOOD CELL COUNT 3.51 mill/uL (4.2-5.4); RED CELL DISTRIBUTION WIDTH 17.4 % (11.6-14.6)
[2017-11-07 13:21] LABS: CHLORIDE 117 mEq/L (98-107)
[2017-11-07] MEDS ORDERED: KCL 20MEQ/100ML PREMIX 100 ML IV SCH (15:00)
[2017-11-07] MEDS ORDERED: BACTERIOSTATIC SODIUM CHLORIDE 0.9% 30ML VIAL IJ ONE (15:17)
[2017-11-07] MEDS ORDERED: MIDAZOLAM HCL 5 MG/5 ML VIAL ONE (15:41)
[2017-11-07] MEDS ORDERED: FENTANYL CITRATE/PF 50MCG/ML 2ML VIAL ONE (15:41)
[2017-11-07] MEDS ORDERED: MIDAZOLAM HCL 5 MG/5 ML VIAL IV PRN (16:10)
[2017-11-08] VITALS (20 sets, daily range): BP systolic 109–154; BP diastolic 45–91
[2017-11-08] MEDS ORDERED: DEXTROSE 50% WATER 50ML SYRINGE IV PRN (00:45)
[2017-11-08] MEDS: PIPERACILLIN/TAZ 3.375G PREMIX 50 ML IV SCH ×3 (03:48→17:58)
[2017-11-08 05:36] LABS: CHLORIDE 119 mEq/L (98-107)
[2017-11-08] MEDS: BLOOD SUGAR DIAGNOSTIC STRIP TEST SCH ×3 (06:43→18:00)
[2017-11-08] MEDS: INSULIN LISPRO 100 UNITS/ML SUBCUT SCH ×3 (06:43→18:00)
[2017-11-08] MEDS: PHENYTOIN SODIUM 100MG/2ML VIAL IV SCH ×3 (06:44→21:31)
[2017-11-08 07:37] LABS: BASOPHILS % 0.4 % (0.0-2.0); EOSINOPHILS % 2.4 % (0.0-5.0); HEMATOCRIT. 25.3 % (36.0-48.0); HEMOGLOBIN. 8.5 g/dL (12.0-16.0); LYMPHOCYTES % 29.1 % (20.0-50.0); MEAN CORPUSCULAR HEMOGLOBIN 26.4 pg (28.0-32.0); MEAN CORPUSCULAR VOLUME 78.2 fL (81.0-99.0); MONOCYTES % 10.6 % (2.0-8.0); NEUTROPHILS % 57.5 % (40.0-76.0); PLATELET 401 x1000/uL (130-400); RED BLOOD CELL COUNT 3.23 mill/uL (4.2-5.4); RED CELL DISTRIBUTION WIDTH 17.6 % (11.6-14.6)
[2017-11-08] MEDS: LEVETIRACETAM 2,000 MG in SODIUM CHLORIDE 0.9% 100 ML IV SCH ×2 (10:15→21:28)
[2017-11-08] MEDS: PANTOPRAZOLE SODIUM 40 MG/VIAL IV SCH (10:15)
[2017-11-08] MEDS: MULTIVITAMINS,THER W-MINERALS TABLET PO SCH (10:16)
[2017-11-08] MEDS: RISPERIDONE 0.5MG TABLET GT SCH ×2 (10:16→17:58)
[2017-11-08] MEDS: AMIODARONE HCL 200 MG TABLET PO SCH ×3 (10:16→17:58)
[2017-11-08] MEDS: DOCUSATE SODIUM SUGAR FREE 100MG/10ML UDC NG SCH (10:17)
[2017-11-08] MEDS: ZONISAMIDE 100MG CAPSULE PO SCH (10:17)
[2017-11-08] MEDS ORDERED: KCL 20MEQ/100ML PREMIX 100 ML IV ONE (13:30)
[2017-11-08] MEDS ORDERED: PHENYTOIN SODIUM 1,000 MG in SODIUM CHLORIDE 0.9% 100 ML IV NR (18:45)
[2017-11-08] MEDS: DEXT 5%/0.45% NACL 500ML 1,000 ML IV SCH (22:20)
[2017-11-09] VITALS (10 sets, daily range): BP systolic 107–156; BP diastolic 47–71
[2017-11-09] MEDS: INSULIN LISPRO 100 UNITS/ML SUBCUT SCH ×4 (00:13→18:00)
[2017-11-09] MEDS: PIPERACILLIN/TAZ 3.375G PREMIX 50 ML IV SCH ×3 (02:54→17:57)
[2017-11-09] MEDS: BLOOD SUGAR DIAGNOSTIC STRIP TEST SCH ×4 (06:00→18:11)
[2017-11-09] MEDS: PHENYTOIN SODIUM 100MG/2ML VIAL IV SCH ×3 (06:06→21:59)
[2017-11-09 07:08] LABS: HEMATOCRIT. 22.1 % (36.0-48.0); HEMOGLOBIN. 7.6 g/dL (12.0-16.0); MEAN CORPUSCULAR HEMOGLOBIN 27.3 pg (28.0-32.0); MEAN CORPUSCULAR VOLUME 79.5 fL (81.0-99.0); MEAN PLATELET VOLUME 8.5 fl (7.4-10.4); PLATELET 448 x1000/uL (130-400); RED BLOOD CELL COUNT 2.78 mill/uL (4.2-5.4); RED CELL DISTRIBUTION WIDTH 17.9 % (11.6-14.6)
[2017-11-09 07:15] LABS: CHLORIDE 118 mEq/L (98-107)
[2017-11-09 07:28] LABS: PHOSPHORUS 2.6 mg/dL (2.5-4.9)
[2017-11-09] MEDS: AMIODARONE HCL 200 MG TABLET PO SCH ×3 (09:00→18:11)
[2017-11-09] MEDS: PANTOPRAZOLE SODIUM 40 MG/VIAL IV SCH (09:30)
[2017-11-09] MEDS: RISPERIDONE 0.5MG TABLET GT SCH ×2 (09:30→18:11)
[2017-11-09] MEDS: MULTIVITAMINS,THER W-MINERALS TABLET PO SCH (09:30)
[2017-11-09] MEDS: DOCUSATE SODIUM SUGAR FREE 100MG/10ML UDC NG SCH (09:30)
[2017-11-09 13:22] LABS: PLATELET ESTIMATE SLIGHTLY INCREASED
[2017-11-09] MEDS ORDERED: LORAZEPAM 2MG/ML CPJ IV PRN (14:30)
[2017-11-09] MEDS ORDERED: PHENYTOIN SODIUM 100MG/2ML VIAL IV SCH (14:30)
[2017-11-09] MEDS: ZONISAMIDE 100MG CAPSULE PO SCH (14:46)
[2017-11-09] MEDS: LEVETIRACETAM 2,000 MG in SODIUM CHLORIDE 0.9% 100 ML IV SCH (14:51)
[2017-11-09] MEDS: DEXT 5%/0.45% NACL 500ML 1,000 ML IV SCH (15:00)
[2017-11-09] MEDS ORDERED: SODIUM CHLORIDE 0.9% IV NR (16:00)
[2017-11-09] MEDS ORDERED: PHENYTOIN SODIUM IV NR (16:00)
[2017-11-10] VITALS (12 sets, daily range): BP systolic 114–143; BP diastolic 48–79
[2017-11-10] MEDS: PIPERACILLIN/TAZ 3.375G PREMIX 50 ML IV SCH ×2 (02:32→09:19)
[2017-11-10] MEDS: LEVETIRACETAM 2,000 MG in SODIUM CHLORIDE 0.9% 100 ML IV SCH ×3 (04:53→21:30)
[2017-11-10] MEDS: PHENYTOIN SODIUM 100MG/2ML VIAL IV SCH ×3 (05:39→21:30)
[2017-11-10] MEDS: BLOOD SUGAR DIAGNOSTIC STRIP TEST SCH ×5 (05:39→23:30)
[2017-11-10] MEDS: DEXT 5%/0.45% NACL 500ML 1,000 ML IV SCH ×2 (05:40→23:42)
[2017-11-10] MEDS: INSULIN LISPRO 100 UNITS/ML SUBCUT SCH ×5 (06:00→23:41)
[2017-11-10 07:10] LABS: BASOPHILS % 0.6 % (0.0-2.0); EOSINOPHILS % 2.9 % (0.0-5.0); HEMATOCRIT. 23.3 % (36.0-48.0); HEMOGLOBIN. 7.8 g/dL (12.0-16.0); LYMPHOCYTES % 28.2 % (20.0-50.0); MEAN CORPUSCULAR HEMOGLOBIN 26.7 pg (28.0-32.0); MONOCYTES % 9.6 % (2.0-8.0); NEUTROPHILS % 58.7 % (40.0-76.0); PLATELET 507 x1000/uL (130-400); RED BLOOD CELL COUNT 2.91 mill/uL (4.2-5.4)
[2017-11-10 07:35] LABS: CHLORIDE 118 mEq/L (98-107)
[2017-11-10] MEDS: DOCUSATE SODIUM SUGAR FREE 100MG/10ML UDC NG SCH (08:32)
[2017-11-10] MEDS: PANTOPRAZOLE SODIUM 40 MG/VIAL IV SCH (08:32)
[2017-11-10] MEDS: MULTIVITAMINS,THER W-MINERALS TABLET PO SCH (08:33)
[2017-11-10] MEDS: RISPERIDONE 0.5MG TABLET GT SCH ×2 (08:33→17:26)
[2017-11-10] MEDS: ZONISAMIDE 100MG CAPSULE PO SCH (08:33)
[2017-11-10] MEDS: AMIODARONE HCL 200 MG TABLET PO SCH ×3 (08:39→17:26)
[2017-11-10] MEDS ORDERED: POTASSIUM CHLORIDE 20MEQ TABLET SR PO NR (09:45)
[2017-11-10] MEDS: ACETAMINOPHEN 650MG/20.3ML UDC PO PRN (18:24)
[2017-11-11] VITALS (19 sets, daily range): BP systolic 105–156; BP diastolic 54–89
[2017-11-11] MEDS: PHENYTOIN SODIUM 100MG/2ML VIAL IV SCH ×3 (05:34→21:17)
[2017-11-11] MEDS: BLOOD SUGAR DIAGNOSTIC STRIP TEST SCH ×3 (05:34→18:19)
[2017-11-11] MEDS: INSULIN LISPRO 100 UNITS/ML SUBCUT SCH ×3 (06:00→18:00)
[2017-11-11 06:08] LABS: BASOPHILS % 0.5 % (0.0-2.0); EOSINOPHILS % 2.3 % (0.0-5.0); LYMPHOCYTES % 23.2 % (20.0-50.0); MEAN CORPUSCULAR HEMOGLOBIN 26.4 pg (28.0-32.0); MEAN CORPUSCULAR VOLUME 79.5 fL (81.0-99.0); MEAN PLATELET VOLUME 8.2 fl (7.4-10.4); PLATELET 517 x1000/uL (130-400); RED BLOOD CELL COUNT 2.55 mill/uL (4.2-5.4); RED CELL DISTRIBUTION WIDTH 17.8 % (11.6-14.6)
[2017-11-11 06:17] LABS: HEMOGLOBIN. 6.7 g/dL (12.0-16.0)
[2017-11-11 06:19] LABS: HEMATOCRIT. 20.2 % (36.0-48.0)
[2017-11-11 06:26] LABS: CHLORIDE 118 mEq/L (98-107)
[2017-11-11] MEDS: ZONISAMIDE 100MG CAPSULE PO SCH (07:58)
[2017-11-11] MEDS: DOCUSATE SODIUM SUGAR FREE 100MG/10ML UDC NG SCH (07:58)
[2017-11-11] MEDS: AMIODARONE HCL 200 MG TABLET PO SCH ×3 (07:58→18:19)
[2017-11-11] MEDS: RISPERIDONE 0.5MG TABLET GT SCH ×2 (07:58→18:19)
[2017-11-11] MEDS: PANTOPRAZOLE SODIUM 40 MG/VIAL IV SCH (07:58)
[2017-11-11] MEDS: MULTIVITAMINS,THER W-MINERALS TABLET PO SCH (07:59)
[2017-11-11] MEDS: LEVETIRACETAM 2,000 MG in SODIUM CHLORIDE 0.9% 100 ML IV SCH ×2 (08:16→21:17)
[2017-11-11] MEDS: MICAFUNGIN 100 MG in SODIUM CHLORIDE 0.9% 100 ML IV SCH (14:13)
[2017-11-11] MEDS: AMPICILLIN 2,000 MG in SODIUM CHLORIDE 0.9% 100 ML IV SCH ×2 (14:14→18:21)
[2017-11-11] MEDS ORDERED: FUROSEMIDE 40MG/4ML VIAL IVP NR (14:15)
[2017-11-11 15:48] LABS: HEMATOCRIT 25.8 % (36.0-48.0); HEMOGLOBIN 8.7 g/dL (12.0-16.0)
[2017-11-12] VITALS (14 sets, daily range): BP systolic 121–194; BP diastolic 55–106
[2017-11-12] MEDS: AMPICILLIN 2,000 MG in SODIUM CHLORIDE 0.9% 100 ML IV SCH ×4 (00:28→17:52)
[2017-11-12] MEDS: BLOOD SUGAR DIAGNOSTIC STRIP TEST SCH ×4 (00:28→17:47)
[2017-11-12] MEDS: PHENYTOIN SODIUM 100MG/2ML VIAL IV SCH ×3 (05:38→21:59)
[2017-11-12] MEDS: INSULIN LISPRO 100 UNITS/ML SUBCUT SCH ×4 (05:44→17:48)
[2017-11-12 06:40] LABS: BASOPHILS % 0.6 % (0.0-2.0); EOSINOPHILS % 2.8 % (0.0-5.0); HEMATOCRIT. 25.4 % (36.0-48.0); HEMOGLOBIN. 8.6 g/dL (12.0-16.0); LYMPHOCYTES % 23.9 % (20.0-50.0); MEAN CORPUSCULAR HEMOGLOBIN 27.3 pg (28.0-32.0); MEAN CORPUSCULAR VOLUME 80.5 fL (81.0-99.0); MEAN PLATELET VOLUME 7.9 fl (7.4-10.4); MONOCYTES % 11.4 % (2.0-8.0); NEUTROPHILS % 61.3 % (40.0-76.0); PLATELET 580 x1000/uL (130-400); RED BLOOD CELL COUNT 3.15 mill/uL (4.2-5.4)
[2017-11-12 06:44] LABS: CHLORIDE 118 mEq/L (98-107)
[2017-11-12] MEDS: ZONISAMIDE 100MG CAPSULE PO SCH (09:04)
[2017-11-12] MEDS: RISPERIDONE 0.5MG TABLET GT SCH ×2 (09:04→17:52)
[2017-11-12] MEDS: AMIODARONE HCL 200 MG TABLET PO SCH ×3 (09:04→17:52)
[2017-11-12] MEDS: MULTIVITAMINS,THER W-MINERALS TABLET PO SCH (09:04)
[2017-11-12] MEDS: DOCUSATE SODIUM SUGAR FREE 100MG/10ML UDC NG SCH (09:04)
[2017-11-12] MEDS: PANTOPRAZOLE SODIUM 40 MG/VIAL IV SCH (09:04)
[2017-11-12] MEDS: LEVETIRACETAM 2,000 MG in SODIUM CHLORIDE 0.9% 100 ML IV SCH ×2 (09:05→21:52)
[2017-11-12] MEDS: MICAFUNGIN 100 MG in SODIUM CHLORIDE 0.9% 100 ML IV SCH (12:32)
[2017-11-12] MEDS ORDERED: POTASSIUM CHLORIDE 20MEQ TABLET SR PO NR (14:00)
[2017-11-12] MEDS ORDERED: AMI2 PO (23:08)
[2017-11-12] MEDS ORDERED: RISP05 GT (23:08)
[2017-11-12] MEDS ORDERED: PHEN50VI3 IV (23:08)
[2017-11-12] MEDS ORDERED: ZONI100C34 PO (23:08)
[2017-11-12] MEDS ORDERED: LEVE1000 PO (23:08)
== END 2017-11-12 23:30 | DRG 3 ==
LOC: ER 06:25 → MICUNO 06:49 → EDBEDREQTM 06:54 → EDBEDREQ 06:54 → ENRESERV 07:00 → MICUSO 10-24 05:15 → 5EST 11-08 16:58
PROVIDERS: ADMIT Internal Medicine; ATTEND Internal Medicine
PROC: 5A1955Z Respiratory Ventilation, Greater than 96 Consecutive Hours (ICD-10-PCS; principal; 2017-10-23)
PROC: 0BH17EZ Insertion of Endotracheal Airway into Trachea, Via Natural or Artificial Opening (ICD-10-PCS; 2017-10-23)
PROC: 06HY33Z Insertion of Infusion Device into Lower Vein, Percutaneous Approach (ICD-10-PCS; 2017-10-23)
PROC: 4A00X4Z Measurement of Central Nervous Electrical Activity, External Approach (ICD-10-PCS; 2017-10-24)
PROC: 4A00X4Z Measurement of Central Nervous Electrical Activity, External Approach (ICD-10-PCS; 2017-10-29)
PROC: 05HY33Z Insertion of Infusion Device into Upper Vein, Percutaneous Approach (ICD-10-PCS; 2017-11-04)
PROC: B54MZZA Ultrasonography of Right Upper Extremity Veins, Guidance (ICD-10-PCS; 2017-11-04)
PROC: 4B02XSZ Measurement of Cardiac Pacemaker, External Approach (ICD-10-PCS; 2017-11-04)
PROC: 02HV33Z Insertion of Infusion Device into Superior Vena Cava, Percutaneous Approach (ICD-10-PCS; 2017-11-05)
PROC: B548ZZA Ultrasonography of Superior Vena Cava, Guidance (ICD-10-PCS; 2017-11-05)
PROC: 0B110F4 Bypass Trachea to Cutaneous with Tracheostomy Device, Open Approach (ICD-10-PCS; 2017-11-06)
PROC: 0GBJ0ZZ Excision of Thyroid Gland Isthmus, Open Approach (ICD-10-PCS; 2017-11-06)
PROC: 0D20XUZ Change Feeding Device in Upper Intestinal Tract, External Approach (ICD-10-PCS; 2017-11-07)
PROC: 4A00X4Z Measurement of Central Nervous Electrical Activity, External Approach (ICD-10-PCS; 2017-11-08)
PROC: 30233N1 Transfusion of Nonautologous Red Blood Cells into Peripheral Vein, Percutaneous Approach (ICD-10-PCS; 2017-11-11)
DX: A41.50 Gram-negative sepsis, unspecified (principal); E43 Unspecified severe protein-calorie malnutrition; J96.00 Acute respiratory failure, unspecified whether with hypoxia or hypercapnia; J69.0 Pneumonitis due to inhalation of food and vomit; R65.21 Severe sepsis with septic shock; D68.59 Other primary thrombophilia; I47.1 Supraventricular tachycardia; I48.1 Persistent atrial fibrillation; R47.01 Aphasia; I13.0 Hypertensive heart and chronic kidney disease with heart failure and stage 1 through stage 4 chronic kidney disease, or unspecified chronic kidney disease; E87.2 Acidosis; K22.10 Ulcer of esophagus without bleeding; N39.0 Urinary tract infection, site not specified; K94.23 Gastrostomy malfunction; I49.5 Sick sinus syndrome; I11.0 Hypertensive heart disease with heart failure; Z68.37 Body mass index [BMI] 37.0-37.9, adult; E83.51 Hypocalcemia; F03.90 Unspecified dementia, unspecified severity, without behavioral disturbance, psychotic disturbance, mood disturbance, and anxiety; D50.9 Iron deficiency anemia, unspecified; I48.0 Paroxysmal atrial fibrillation; I50.9 Heart failure, unspecified; K56.41 Fecal impaction; K44.9 Diaphragmatic hernia without obstruction or gangrene; R13.12 Dysphagia, oropharyngeal phase; E11.9 Type 2 diabetes mellitus without complications; G93.89 Other specified disorders of brain; M21.379 Foot drop, unspecified foot; G40.401 Other generalized epilepsy and epileptic syndromes, not intractable, with status epilepticus; E66.9 Obesity, unspecified; N28.1 Cyst of kidney, acquired; B96.4 Proteus (mirabilis) (morganii) as the cause of diseases classified elsewhere; K29.70 Gastritis, unspecified, without bleeding; E78.1 Pure hyperglyceridemia; B96.5 Pseudomonas (aeruginosa) (mallei) (pseudomallei) as the cause of diseases classified elsewhere; Z95.0 Presence of cardiac pacemaker; Z86.73 Personal history of transient ischemic attack (TIA), and cerebral infarction without residual deficits; Z79.01 Long term (current) use of anticoagulants; Z86.718 Personal history of other venous thrombosis and embolism; Z79.899 Other long term (current) drug therapy; Z79.4 Long term (current) use of insulin; Y83.8 Other surgical procedures as the cause of abnormal reaction of the patient, or of later complication, without mention of misadventure at the time of the procedure; Y92.238 Other place in hospital as the place of occurrence of the external cause
CPT/HCPCS: 36415; 36569; 36600; 51702; 70450; 71045; 74018; 74177; 76937; 80048; 80053; 80185; 80202; 80305; 81003; 82270; 82375; 82550; 82607; 82728; 82746; 82805; 82962; 83540; 83550; 83605; 83690; 83735; 83880; 84100; 84145; 84439; 84443; 84478; 84484; 85014; 85018; 85025; 85027; 85044; 85379; 85610; 85730; 86850; 86900; 86920; 87040; 87070; 87077; 87086; 87106; 87186; 93005; 93306; 93970; 94002; 94003; 94640; 96365; 96375; 96376; 99291; A4216; A6261; C1725; C1769; C9113; G0482; J0278; J0290; J0330; J0360; J0692; J1160; J1165; J1170; J1642; J1815; J1940; J1953; J1956; J2060; J2248; J2250; J2370; J2543; J2704; J3010; J3370; J3480; J3490; J7030; J7040; J7050; J7060; P9016; Q9967; A4315

== ENCOUNTER 2017-12-05 20:02 | Inpatient (IN) | payer OTHER, MEDICAID ==
[~2017-12-05] VITALS: Ht 172.7 cm; Wt 90.3 kg
[~2017-12-05 20:02] MED LIST changes: +AMI2 PO; -APIX5TAB GT; -DIGO125T82 GT; -DILT240T12 GT; -HYDR-4134 GT; -INSLIS SUBCUT; +LEVE1000 PO; -LEVE750T10 GT; -METO-539 GT; -PHEN100C4 GT; +PHEN50VI3 IV; +RISP05 GT; +ZONI100C34 PO
[2017-12-05] MEDS ORDERED: PANTOPRAZOLE SODIUM 40 MG/VIAL IV ONE (20:30)
[2017-12-05] MEDS ORDERED: LEVOFLOXACIN 500MG PREMIX 100 ML IV ONE (21:00)
[2017-12-05] MEDS ORDERED: PIPERACILLIN/TAZ 3.375G PREMIX 50 ML IV ONE (21:00)
[2017-12-05 21:51] LABS: BASOPHILS % 0.5 % (0.0-2.0); EOSINOPHILS % 2.1 % (0.0-5.0); HEMATOCRIT. 25.8 % (36.0-48.0); HEMOGLOBIN. 8.4 g/dL (12.0-16.0); LYMPHOCYTES % 21.4 % (20.0-50.0); MEAN CORPUSCULAR HEMOGLOBIN 28.5 pg (28.0-32.0); MEAN CORPUSCULAR VOLUME 87.1 fL (81.0-99.0); MEAN PLATELET VOLUME 7.8 fl (7.4-10.4); PLATELET 403 x1000/uL (130-400); RED BLOOD CELL COUNT 2.96 mill/uL (4.2-5.4); RED CELL DISTRIBUTION WIDTH 17.5 % (11.6-14.6)
[2017-12-05 21:57] LABS: INR 1.1; PROTHROMBIN TIME 10.6 sec (9.1-11.1)
[2017-12-05 21:58] LABS: CHLORIDE 101 mEq/L (98-107)
[2017-12-05 22:02] LABS: TOTAL IRON BINDING CAPACITY 140 ug/dL (250-450)
[2017-12-05] MEDS ORDERED: ACETAMINOPHEN 650MG SUPP PR PRN (23:15)
[2017-12-05] MEDS ORDERED: LORAZEPAM 2MG/ML CPJ IV PRN (23:15)
[2017-12-05] MEDS ORDERED: ENOXAPARIN 40MG/0.4ML SYR SUBCUT SCH (23:15)
[2017-12-05] MEDS ORDERED: ONDANSETRON HCL 4MG/2ML INJ IV PRN (23:15)
[2017-12-05] MEDS ORDERED: PHENYTOIN SODIUM EXTENDED 100MG CAPSULE PO NR (23:45)
[2017-12-06] VITALS (10 sets, daily range): BP systolic 101–136; BP diastolic 65–81
[2017-12-06 00:16] LABS: CLARITY URINE CLEAR (CLEAR); COLOR URINE YELLOW (YELLOW); KETONES URINE NEGATIVE (NEGATIVE); LEUKOCYTE ESTERASE URINE NEGATIVE (NEGATIVE); NITRITE URINE NEGATIVE (NEGATIVE); OCCULT BLOOD URINE NEGATIVE (NEGATIVE); PH URINE 8.5 (4.5-8.0); PROTEIN URINE 3+ (NEGATIVE); SPECIFIC GRAVITY URINE 1.011 (1.005-1.030); UROBILINOGEN URINE 0.2 E.U./dL (0.2-1.0)
[2017-12-06] MEDS ORDERED: PHENYTOIN 100 MG/4 ML UDC PO NR (00:30)
[2017-12-06 00:49] LABS: *BENZODIAZEPINES SCREEN URINE NEGATIVE (NEGATIVE); *COCAINE SCREEN URINE NEGATIVE (NEGATIVE)
[2017-12-06 00:51] LABS: *AMPHETAMINES SCREEN URINE NEGATIVE (NEGATIVE); *BARBITURATES SCREEN URINE NEGATIVE (NEGATIVE); CANNABINOID URINE SCREEN NEGATIVE (NEGATIVE); METHADONE URINE SCREEN NEGATIVE (NEGATIVE); OPIATES URINE SCREEN NEGATIVE (NEGATIVE); PHENCYCLIDINE URINE SCREEN NEGATIVE (NEGATIVE)
[2017-12-06] MEDS: SODIUM CHLORIDE 0.9% 1,000 ML IV SCH ×3 (02:30→05:03)
[2017-12-06] MEDS ORDERED: VANCOMYCIN 2,000 MG in DEXT 5% WATER 500 ML IV NR (02:30)
[2017-12-06] MEDS: PIPERACILLIN/TAZ 3.375G PREMIX 50 ML IV SCH ×3 (05:04→20:17)
[2017-12-06 07:04] LABS: BASOPHILS % 0.6 % (0.0-2.0); EOSINOPHILS % 2.2 % (0.0-5.0); HEMOGLOBIN. 7.1 g/dL (12.0-16.0); LYMPHOCYTES % 29.3 % (20.0-50.0); MEAN CORPUSCULAR HEMOGLOBIN 29.2 pg (28.0-32.0); MEAN CORPUSCULAR VOLUME 86.7 fL (81.0-99.0); MEAN PLATELET VOLUME 8.4 fl (7.4-10.4); MONOCYTES % 10.6 % (2.0-8.0); NEUTROPHILS % 57.3 % (40.0-76.0); PLATELET 360 x1000/uL (130-400); RED BLOOD CELL COUNT 2.42 mill/uL (4.2-5.4); RED CELL DISTRIBUTION WIDTH 17.7 % (11.6-14.6)
[2017-12-06 07:27] LABS: CREATINE KINASE 75 IU/L (26-192); CREATINE KINASE MB FRACTION 1.2 ng/mL (0.5-3.6); HDL CHOLESTEROL 83 mg/dL (40-59); LDL CHOLESTEROL 53 mg/dL (5-100)
[2017-12-06] MEDS: PANTOPRAZOLE SODIUM 40 MG/VIAL IV SCH (09:45)
[2017-12-06] MEDS ORDERED: LEVETIRACETAM 2000 MG PO SCH (10:45)
[2017-12-06] MEDS ORDERED: LEVETIRACETAM 500MG TABLET PO SCH ×2 (11:00)
[2017-12-06] MEDS: CALCIUM CARBONATE/VITAMIN D3 500MG TABLET GT SCH (12:44)
[2017-12-06] MEDS: RISPERIDONE 0.5MG TABLET GT SCH ×2 (12:45→17:31)
[2017-12-06] MEDS: AMIODARONE HCL 200 MG TABLET PO SCH ×3 (12:45→17:31)
[2017-12-06] MEDS: ZONISAMIDE 100MG CAPSULE PO SCH (12:45)
[2017-12-06] MEDS ORDERED: PHENYTOIN SODIUM 1000MG in SODIUM CHLORIDE 0.9% 100ML IV NR (13:00)
[2017-12-06 13:29] LABS: AMMONIA 17 uMol/L (<32)
[2017-12-06] MEDS ORDERED: LIDOCAINE HCL 1% 20ML VIAL (Pyxis) INJ ONE (13:39)
[2017-12-06] MEDS: DEXT 5%/0.45% NACL 1000ML 1,000 ML IV SCH (16:06)
[2017-12-06] MEDS: LEVETIRACETAM 500MG TABLET PO SCH (18:06)
[2017-12-06] MEDS ORDERED: VANCOMYCIN 1250MG in DEXTROSE 5% WATER 250ML IV SCH (20:00)
[2017-12-06 21:15] LABS: CREATINE KINASE 150 IU/L (26-192); CREATINE KINASE MB FRACTION 3.6 ng/mL (0.5-3.6)
[2017-12-07] VITALS (11 sets, daily range): BP systolic 111–145; BP diastolic 56–84
[2017-12-07] MEDS: PIPERACILLIN/TAZ 3.375G PREMIX 50 ML IV SCH ×3 (00:20→12:41)
[2017-12-07] MEDS: DEXT 5%/0.45% NACL 1000ML 1,000 ML IV SCH ×2 (01:18→12:41)
[2017-12-07 06:55] LABS: BASOPHILS % 0.6 % (0.0-2.0); EOSINOPHILS % 1.4 % (0.0-5.0); HEMATOCRIT. 21.2 % (36.0-48.0); HEMOGLOBIN. 7.1 g/dL (12.0-16.0); LYMPHOCYTES % 30.8 % (20.0-50.0); MEAN CORPUSCULAR VOLUME 86.8 fL (81.0-99.0); MEAN PLATELET VOLUME 8.1 fl (7.4-10.4); MONOCYTES % 10.6 % (2.0-8.0); NEUTROPHILS % 56.6 % (40.0-76.0); PLATELET 365 x1000/uL (130-400); RED BLOOD CELL COUNT 2.45 mill/uL (4.2-5.4); RED CELL DISTRIBUTION WIDTH 17.6 % (11.6-14.6)
[2017-12-07 07:31] LABS: AMMONIA 46 uMol/L (<32)
[2017-12-07 07:45] LABS: CHLORIDE 104 mEq/L (98-107)
[2017-12-07] MEDS: CALCIUM CARBONATE/VITAMIN D3 500MG TABLET GT SCH (08:39)
[2017-12-07] MEDS: PANTOPRAZOLE SODIUM 40 MG/VIAL IV SCH (08:39)
[2017-12-07] MEDS: ZONISAMIDE 100MG CAPSULE PO SCH (08:39)
[2017-12-07] MEDS: LEVETIRACETAM 500MG TABLET PO SCH ×2 (08:39→16:21)
[2017-12-07] MEDS: RISPERIDONE 0.5MG TABLET GT SCH ×2 (08:39→16:20)
[2017-12-07] MEDS: AMIODARONE HCL 200 MG TABLET PO SCH ×3 (08:39→16:21)
[2017-12-08] VITALS (11 sets, daily range): BP systolic 86–142; BP diastolic 48–85
[2017-12-08] MEDS: DEXT 5%/0.45% NACL 1000ML 1,000 ML IV SCH ×2 (05:42→18:35)
[2017-12-08] MEDS: IPRATROPIUM/ALBUTEROL 0.5-3(2.5)MG/3ML NEB INH PRN ×2 (07:57→15:35)
[2017-12-08] MEDS: PANTOPRAZOLE SODIUM 40 MG/VIAL IV SCH (09:21)
[2017-12-08] MEDS: CALCIUM CARBONATE/VITAMIN D3 500MG TABLET GT SCH (09:21)
[2017-12-08] MEDS: AMIODARONE HCL 200 MG TABLET PO SCH ×3 (09:21→17:22)
[2017-12-08] MEDS: RISPERIDONE 0.5MG TABLET GT SCH ×2 (09:21→17:22)
[2017-12-08] MEDS: LEVETIRACETAM 500MG TABLET PO SCH ×2 (09:21→17:23)
[2017-12-08] MEDS: ZONISAMIDE 100MG CAPSULE PO SCH (09:21)
[2017-12-08] MEDS: PHENYTOIN SODIUM EXTENDED 100MG CAPSULE PO SCH ×2 (10:33→21:49)
[2017-12-09] VITALS: BP 149/71
[2017-12-09 02:00] VITALS: BP 108/59
[2017-12-09 04:00] VITALS: BP 132/86
[2017-12-09 06:00] VITALS: BP 159/87
[2017-12-09 08:00] VITALS: BP 155/87
[2017-12-09] MEDS: IPRATROPIUM/ALBUTEROL 0.5-3(2.5)MG/3ML NEB INH PRN (08:33)
[2017-12-09] MEDS: LEVETIRACETAM 500MG TABLET PO SCH (09:53)
[2017-12-09] MEDS: PANTOPRAZOLE SODIUM 40 MG/VIAL IV SCH (09:53)
[2017-12-09] MEDS: RISPERIDONE 0.5MG TABLET GT SCH (09:53)
[2017-12-09] MEDS: CALCIUM CARBONATE/VITAMIN D3 500MG TABLET GT SCH (09:53)
[2017-12-09] MEDS: ZONISAMIDE 100MG CAPSULE PO SCH (09:53)
[2017-12-09] MEDS: PHENYTOIN SODIUM EXTENDED 100MG CAPSULE PO SCH (09:53)
[2017-12-09] MEDS: AMIODARONE HCL 200 MG TABLET PO SCH (09:58)
[2017-12-09 10:00] VITALS: BP 154/87
== END 2017-12-09 14:05 | DRG 208 ==
LOC: ER 20:02 → 5EST 22:23 → EDBEDREQTM 22:26 → EDBEDREQ 22:26 → ENRESERV 22:36
PROVIDERS: ADMIT Internal Medicine; ATTEND Internal Medicine
PROC: 5A1945Z Respiratory Ventilation, 24-96 Consecutive Hours (ICD-10-PCS; 2017-12-05)
PROC: B54BZZA Ultrasonography of Right Lower Extremity Veins, Guidance (ICD-10-PCS; principal; 2017-12-06)
PROC: 06HY33Z Insertion of Infusion Device into Lower Vein, Percutaneous Approach (ICD-10-PCS; 2017-12-06)
DX: J96.20 Acute and chronic respiratory failure, unspecified whether with hypoxia or hypercapnia (principal); E43 Unspecified severe protein-calorie malnutrition; J18.9 Pneumonia, unspecified organism; J44.0 Chronic obstructive pulmonary disease with (acute) lower respiratory infection; G93.40 Encephalopathy, unspecified; K22.10 Ulcer of esophagus without bleeding; R47.01 Aphasia; Z99.11 Dependence on respirator [ventilator] status; E87.2 Acidosis; D64.9 Anemia, unspecified; E11.9 Type 2 diabetes mellitus without complications; F03.90 Unspecified dementia, unspecified severity, without behavioral disturbance, psychotic disturbance, mood disturbance, and anxiety; G40.901 Epilepsy, unspecified, not intractable, with status epilepticus; G93.89 Other specified disorders of brain; I10 Essential (primary) hypertension; I48.2 Chronic atrial fibrillation; I49.5 Sick sinus syndrome; K44.9 Diaphragmatic hernia without obstruction or gangrene; R13.10 Dysphagia, unspecified; M20.40 Other hammer toe(s) (acquired), unspecified foot; M21.379 Foot drop, unspecified foot; K29.00 Acute gastritis without bleeding; M24.571 Contracture, right ankle; M24.572 Contracture, left ankle; Z87.19 Personal history of other diseases of the digestive system; Z86.718 Personal history of other venous thrombosis and embolism; Z95.0 Presence of cardiac pacemaker; Z86.73 Personal history of transient ischemic attack (TIA), and cerebral infarction without residual deficits; Z93.0 Tracheostomy status; Z93.1 Gastrostomy status; Z79.899 Other long term (current) drug therapy; Z68.30 Body mass index [BMI] 30.0-30.9, adult; Z87.440 Personal history of urinary (tract) infections
CPT/HCPCS: 36415; 36569; 36680; 70450; 71045; 74018; 76937; 80048; 80053; 80061; 80185; 80305; 81003; 82140; 82270; 82550; 82553; 82728; 82962; 83540; 83550; 83605; 83690; 83880; 84145; 84443; 84484; 85025; 85044; 85610; 85730; 86850; 86900; 86920; 87040; 87086; 93005; 93970; 94002; 94003; 94640; 96365; 96375; 99291; C9113; J1165; J1956; J2543; J3370; J3490; J7030; J7040; J7050; J7060; J7620